=== PATIENT | female | born 1965 | race Caucasian/White ===

== ENCOUNTER 2019-03-15 15:20 | Inpatient (IN) | payer MEDICARE, SELFPAY ==
[~2019-03-15 15:20] MED LIST: ISOVUE-370 76%-LOCM 1 ML ONE
[2019-03-15] MEDS ORDERED: Naloxone HCl 0.4 mg/ml Vial ONE (15:25)
[2019-03-15] MEDS ORDERED: Naloxone HCl 2 mg/2 ml Syringe ONE (15:25)
--- NOTE | 2019-03-15 15:50 | RAD ---
XR Chest 1 View Portable HISTORY: Dyspnea, unresponsive. COMPARISON: None. FINDINGS: Heart size is enlarged. Endotracheal and NG tubes are in satisfactory position. There is el evation the right hemidiaphragm. Increased parahilar lung markings are present asymmetrically involving the right hilar region. This could be on the basis of pulmonary edema, a right parahilar in filtrate is not excluded. IMPRESSION: Findings as noted above.
[2019-03-15 15:52] LABS: Actual Bicarbonate (HCO3a) 22.1 mEq/L (22-28); Analyzer IN Cardio ER; CO2 Tension 49.5 mmHg (35.0-45.0); Calcium, Ionized 1.11 mmol/L (1.12-1.30); Carboxyhemoglobin (COHb) 2.2 gm% (0.0-3.0); Hemoglobin (Hb) 12.1 g/dL (12.0-16.0); O2 Tension (PaO2) 64.3 mmHg (80.0-100.0); Potassium - ABG Lab 3.19 mmol/L (3.70-5.30); pH, Arterial 7.27 (7.35-7.45)
[2019-03-15] MEDS ORDERED: Acetaminophen 650 MG Suppository ONE (15:52)
[2019-03-15] MEDS ORDERED: Pantoprazole 40 MG VIAL ONE (15:52)
[2019-03-15] MEDS ORDERED: Piperacillin/Tazobactam 3.375 GM VIAL ONE (15:52)
[2019-03-15] MEDS ORDERED: Tranexamic Acid 1,000 MG/10 ML VIAL ONE (15:52)
[2019-03-15 15:56] LABS: Puncture Site RBRACH
[2019-03-15 15:57] LABS: ALV-art Gradient 586.825 (0-20); Peep/CPAP 7.5 cmH2O
[2019-03-15 15:57] LABS: Bilirubin Negative (Negative); Blood, Urine Moderate (Negative); Clarity CLEAR (Clear); Glucose, Urine (Dipstick) Negative (Negative); Leukocyte Negative (Negative); Nitrite Negative (Negative); Protein, Urine (Dipstick) 100 mg/dL (Neg-Trace); Specific Gravity, Urine 1.017 (1.002-1.036); Urobilinogen 0.2 mg/dL (0.2-1.0); pH, Urine 5.5 (5.0-9.0)
[2019-03-15 15:59] LABS: Bacteria/HPF None Seen HPF (None Seen); Hyaline Casts/LPF 7-10 HYALINE CAST LPF (0-3 Hyaline); Pathc Cast-AUWi Flag 2.31 (0-2.49); RBC/HPF 0-3 HPF (0-3); Squamous Epithelial None Seen HPF (0-3); WBC/HPF None Seen HPF (0-3)
[2019-03-15 16:07] LABS: Amphetamine Not Detected (NotDetected); Barbiturates Screen Not Detected (NotDetected); Benzodiazepine Screen Detected (NotDetected); Cocaine Metabolite Screen Not Detected (NotDetected); Medtox Control Line Valid? VALID (VALID); Medtox Reader # READER 1; Methadone Not Detected (NotDetected); Methamphetamine Not Detected (NotDetected); Opiate Screen Detected (NotDetected); Oxycodone Screen Not Detected (NotDetected); Phencyclidine (PCP) Not Detected (NotDetected); THC/Cannabinoid Screen Not Detected (NotDetected); Tricyclic Screen Not Detected (NotDetected)
[2019-03-15] MEDS ORDERED: fentaNYL Citrate/PF 2,000 MCG in Sodium Chloride 0.9% 60 ML IV SCH ×2 (16:14→18:13)
[2019-03-15] MEDS ORDERED: Pantoprazole 80 MG in Sodium Chloride 0.9% 100 ML IVP SCH (16:15)
[2019-03-15] MEDS ORDERED: Propofol 1,000 MG/100 ML VIAL IV ONE (16:25)
[2019-03-15 16:30] LABS: #Basophils 0.1 thou/uL (0.0-0.2); #Lymphocytes 1.5 thou/uL (1.20-3.40); #Monocytes 0.7 thou/uL (0.11-0.59); #Neutrophils 8.9 thou/uL (1.40-6.50); %Basophils 0.5 % (0.0-1.0); %Eosinophils 0.2 % (0.0-10.0); %Lymphocytes 13.1 % (21.0-51.0); %Monocytes 6.5 % (0.0-10.0); %Neutrophils 79.7 % (42.0-75.0); Hemoglobin 10.6 g/dL (12.0-16.0); Mean Corpuscular HGB CONC 31.7 g/dL (32.0-36.0); Mean Corpuscular Volume 94.6 fL (78.0-98.0); Mean Platelet Volume 7.2 fL (7.4-10.4); Platelet Count 217 thou/uL (130-400); RBC Distribution Width 12.5 % (11.5-14.5); Red Blood Cell (RBC) Count 3.54 mill/uL (4.20-5.40); White Blood Cell (WBC) Count 11.2 thou/uL (4.8-10.8)
[2019-03-15] MEDS ORDERED: Tranexamic Acid 1,000 MG in Sodium Chloride 0.9% 250 ML 250 ML IVPB SCH (16:30)
[2019-03-15] MEDS ORDERED: Vancomycin HCl 1.75 GM in Sodium Chloride 0.9% 500 ML IVPB SCH (16:30)
[2019-03-15 16:46] LABS: Lactic Acid 1.3 mmol/L (0.5-2.2)
[2019-03-15 16:50] LABS: Acetaminophen Less than 6.0 mcg/mL (10.0-30.0); Alcohol Less than 10 mg/dL (Less than 10); Salicylate Less than 8.0 mg/dL (15.0-30.0)
[2019-03-15 16:52] LABS: ALT (SGPT) 115 U/L (8-55); AST (SGOT) 214 U/L (5-34); Albumin 2.9 g/dL (3.5-5.0); Alkaline Phosphatase 67 U/L (40-150); Anion Gap 13 mmol/L (10-20); BUN (Urea Nitrogen) 46 mg/dL (9.8-20.1); Bilirubin, Total 0.3 mg/dL (0.2-1.2); Calc. Creatinine Clearance 37 mL/min (70-130); Calcium 7.2 mg/dL (7.8-10.44); Carbon Dioxide 21 mmol/L (22-29); Chloride 110 mmol/L (98-107); Estimated GFR-MDRD 22; Globulin 1.8 g/dL (2.4-3.5); Glucose 110 mg/dL (70-105); Potassium 3.3 mmol/L (3.5-5.1); Protein, Total 4.7 g/dL (6.0-8.3); Sodium 141 mmol/L (136-145)
--- NOTE | 2019-03-15 17:01 | CT ---
CT head noncontrast HISTORY: Altered mental status. FINDINGS: No comparison. There is no evidence of acute intracranial hemorrhage or infarct. Small ill- defined areas of decreased density within the basal ganglia have the appearance of old lacunar infarcts. Scattered mild chronic ischemic small vessel disease throughout the periventricular white m atter. There is no mass effect or shift of midline structures. Mild mucosal thickening within the ethmoid air cells. IMPRESSION: Mild chronic ischemic changes are apparent. No acute intracranial abnormalities are demon strated.
--- NOTE | 2019-03-15 17:09 | CT ---
CT chest with IV contrast CT abdomen and pelvis with IV contrast CT thoracic spine noncontrast CT lumbar spine noncontrast HISTORY: Fall. Chest injury. Back injury. Abdomen injury. FINDINGS: Intraosseous catheter at the right humeral head. Endotracheal catheter and nasogastric tube are in good CT position. Extensive collapse of the right lower lobe and left upper lobe sparing the anterior segment. Right mi ddle lobe remains aerated. Moderate atelectasis at the left posterior lung base. Abrupt cut off of the airway is not evident. Old bilateral rib fractures. Gallbladder surgically absent. Mild nonspecific periportal edema. No enl arged lymph nodes or free fluid. Urinary bladder decompressed by a Johnson catheter. Degenerative changes throughout the lumbar spine. Vertebral body heights and alignment are maintained . Absence of the posterior elements at the T11 level, likely postoperative. IMPRESSION: No acute traumatic injury is demonstrated. Significant atelectasis of each lung, right greater than left. Predominantly dependent portions of th e lungs. Cause is not evident. Mild diffuse periportal edema of the liver. Cause is not evident.
[2019-03-15 17:22] LABS: CKMB 101.3 ng/mL (0-6.6)
[2019-03-15 17:55] LABS: Analyzer IN Cardio ER; Base Excess (BEa) -6.7 mEq/L (-2.0 to +3.0); CO2 Tension 38.6 mmHg (35.0-45.0); Calcium, Ionized 1.05 mmol/L (1.12-1.30); Carboxyhemoglobin (COHb) 0.3 gm% (0.0-3.0); Hemoglobin (Hb) 12.3 g/dL (12.0-16.0); O2 Tension (PaO2) 87.1 mmHg (80.0-100.0); Potassium - ABG Lab 3.64 mmol/L (3.70-5.30); pH, Arterial 7.31 (7.35-7.45)
[2019-03-15 17:57] LABS: Puncture Site RBRACH
[2019-03-15] MEDS ORDERED: Ventilator Sedation Protocol 1 EACH FS SCH (18:02)
--- NOTE | 2019-03-15 18:05 | PDOC.FPRHP ---
- History of Present Illness Chief Complaint: found unresponsive History of Present Illness: This is a 54 yo F who presented to the ER by EMS after being found unresponsive by family members. Per EMS, the family reports that she was not feeling well this morning and laid down for a nap. They are unsure how long she had been sleeping. Per air EMS, ground EMS reported GCS 5 and hypotensive on scene. Ground EMS intubated the patient. [facility] reports a blood glucose of 142 en route. An NG tube was placed with dark return. Per fiance, the patient started feeling bad around 10pm yesterday. She was complaining of a cough and stomach pain. She went to bed shortly after. He states that she typically sleeps in till 11am, but had not woken up by 1pm which is when he checked on her and was unable to wake her. He noted some black material around her mouth at that time. Unable to obtain further hx due to patient mental status. She is currently intubated and on sedation. ED Course: propofol 5mcg/kg/min, fentanyl 1mcg/kg/hr, tranexamic acid 2g, naloxone 1mg IV, protonix, NaCl 30mL/kg, tylenol 650mg, vanc, zosyn - Allergies/Adverse Reactions Allergies Allergy/AdvReac Type Severity Reaction Status Date / Time codeine Allergy Verified 03/15/19 20:58 ketorolac [From Toradol] Allergy Verified 03/15/19 20:58 metoclopramide [From Reglan] Allergy Verified 03/15/19 20:58 prochlorperazine Allergy Verified 03/15/19 20:58 [From Compazine] tramadol Allergy Verified 03/15/19 20:58 - History *Per fiance at the bedside PMHx: HLD, HTN PSHx: spinal tumor removed FHx: unknown Social: denies alcohol, drug use; tobacco - 4cigs/day x unknown amount of year - Review of Systems ROS unobtainable: due to endotracheal tube - Vital signs BP: 114/78 HR: 113 RR: 14 Tmax: 101.6 Pox: 96% on ventilator Wt: 85.4kg - Physical Exam -Constitutional: intubated, on ventilator, GCS 6 HEENT: normocephalic and atraumatic -HEENT: Pupils, fixed, constricted Neck: supple -Heart: tachycardic, no murmurs, rubs or gallops Lungs: no wheezing, no retractions -Lungs: On ventilator, CTAB w/ ventilator sounds Abdomen: soft, no masses/distention Musculoskeletal: normal structure -Neurological: unable to assess Skin: no rash/lesions, good turgor, capillary refill <2 seconds Heme/Lymphatic: no unusual bruising or bleeding, no purpura, no petechia FMR H&P: Results - Labs Result Diagrams: 03/15/19 21:09 03/15/19 16:16 Lab results: WBC 11.2 thou/uL (4.8-10.8) H 03/15/19 16:16 Hgb 10.6 g/dL (12.0-16.0) L 03/15/19 16:16 Hct 33.5 % (36.0-47.0) L 03/15/19 16:16 MCV 94.6 fL (78.0-98.0) 03/15/19 16:16 Plt Count 217 thou/uL (130-400) 03/15/19 16:16 Neutrophils % 79.7 % (42.0-75.0) H 03/15/19 16:16 ABG pH 7.31 (7.35-7.45) L 03/15/19 17:53 ABG pCO2 38.6 mmHg (35.0-45.0) 03/15/19 17:53 ABG pO2 87.1 mmHg (80.0-100.0) 03/15/19 17:53 Sodium 141 mmol/L (136-145) 03/15/19 16:16 Potassium 3.3 mmol/L (3.5-5.1) L 03/15/19 16:16 Chloride 110 mmol/L (98-107) H 03/15/19 16:16 Carbon Dioxide 21 mmol/L (22-29) L 03/15/19 16:16 BUN 46 mg/dL (9.8-20.1) H 03/15/19 16:16 Creatinine 2.32 mg/dL (0.6-1.1) H 03/15/19 16:16 Glucose 110 mg/dL (70-105) H 03/15/19 16:16 Lactic Acid 1.3 mmol/L (0.5-2.2) 03/15/19 16:16 Calcium 7.2 mg/dL (7.8-10.44) L 03/15/19 16:16 Total Bilirubin 0.3 mg/dL (0.2-1.2) 03/15/19 16:16 AST 214 U/L (5-34) H 03/15/19 16:16 ALT 115 U/L (8-55) H 03/15/19 16:16 Alkaline Phosphatase 67 U/L (40-150) 03/15/19 16:16 CK-MB (CK-2) 101.3 ng/mL (0-6.6) H* 03/15/19 16:16 Serum Total Protein 4.7 g/dL (6.0-8.3) L 03/15/19 16:16 Albumin 2.9 g/dL (3.5-5.0) L 03/15/19 16:16 Urine Ketones Negative mg/dL (Negative) 03/15/19 15:33 Urine Blood Moderate (Negative) H 03/15/19 15:33 Urine Nitrite Negative (Negative) 03/15/19 15:33 Ur Leukocyte Esterase Negative (Negative) 03/15/19 15:33 Urine RBC 0-3 HPF (0-3) 03/15/19 15:33 Urine WBC None Seen HPF (0-3) 03/15/19 15:33 Ur Squamous Epith Cells None Seen HPF (0-3) 03/15/19 15:33 Urine Bacteria None Seen HPF (None Seen) 03/15/19 15:33 - Radiology Interpretation CT scan - abdomen Status: report reviewed by me (significant atelectasis of each lung, R>L, mild diffuse periportal edema of liver) Chest x-ray Status: report reviewed by me (increased parahilar lung markings - possible pulm edema more on right) CT scan - head Status: report reviewed by me (mild chronic ischemic changes) FMR H&P: A/P - Problem List (1) Encephalopathy acute Current Visit: Yes Status: Acute Code(s): G93.40 - ENCEPHALOPATHY, UNSPECIFIED (2) GI bleed Current Visit: Yes Status: Acute Code(s): K92.2 - GASTROINTESTINAL HEMORRHAGE, UNSPECIFIED (3) Transaminitis Current Visit: Yes Status: Acute Code(s): R74.0 - NONSPEC ELEV OF LEVELS OF TRANSAMNS & LACTIC ACID DEHYDRGNSE (4) LUCÍA (acute kidney injury) Current Visit: Yes Status: Acute Code(s): N17.9 - ACUTE KIDNEY FAILURE, UNSPECIFIED (5) NSTEMI (non-ST elevated myocardial infarction) Current Visit: Yes Status: Acute Code(s): I21.4 - NON-ST ELEVATION (NSTEMI) MYOCARDIAL INFARCTION (6) Respiratory acidosis Current Visit: Yes Status: Acute Code(s): E87.2 - ACIDOSIS (7) Metabolic acidemia Current Visit: Yes Status: Acute Code(s): E87.2 - ACIDOSIS - Plan STATE EPIDEMIOLOGIST - Sedation: on 15mcg propofol - GCS: E - 1, V - 1t, M - 4 = 6 - Metabolic encephalopathy, POA - 2/2 GI bleed presumably - ammonia pending Resp - ABG: pH 7.31, Co2 38.6, O2 87.1, Bicarb 19, base excess -6.7 - appears metabolic acidosis but has been on ventilation; initial ABG resp acidosis with pH 7.27, Co2 49.5, O2 64.3, base excess 05, bicarb 22.1 - Pulm consulted - Vent settings: SimV PC 18 for 1.05s w/ cut off at 25% Insp Flow rate, PEEP 10 , Insp Support Pressure 10 - Pt w/ tobacco abuse and likely has COPD CV - Pressors: none - NSTEMI: Trop 1.59, will trend; likely 2/2 demand due to hypoxia due to underlying medical condition GI - NG tube placed: Return of black material - FOBT pending on gastric contents - Transaminitis: AST/ALT: 214/115 - RUQ US pending; Hep panel, RPR, HIV labs pending - Suspect GI bleed possibly 2/2 NSAID use: consider GI consult in the AM Heme - Hgb 10.6, will repeat H/H at 2200, repeat CBC in AM /Renal - I/O: roth in place - LUCÍA: BUN/Cr: 46/2.32, renally dosing meds, IVFs Infection - WBC 11.2, Neutrophils 79.7%, no bands - procal 0.17, will leave patient on abx for now and trend; LA 1.3 - On vanc and zosyn Lines/Tubes: right femoral Central line, right shoulder IO, left IJ, roth Consults: Alexander - Colin Code status: FULL - Daughter in [place]: Dariela [phone] - Discussed code status w/ daughter; hilton Norman [phone] PPx: SCDs, possible GI bleed Dispo: pending clinical course Case discussed with Dr. Abdul FMR H&P: Upper Level - Pertinent history 54 yo WF PMH HTN, HLD, tobacco abuse with likely COPD, and chronic back pain 2/ 2 DJD and spine tumor which was resected last year. Presents with AMS that started this afternoon. history obtained from patient hilton as patient intubated and sedated. States patient was not feeling well last night around 2200. Had cough and stomach pain when she went to bed. Hilton states she normally wakes up around 1300 and found her unresponsive when he went to check on her this morning at around 1100. Called EMS and was intubated at the scene. ER: Labs, EKG, CXR, CT brain, CT chest/abd/pelvis, Vanc, Zosyn, Right femoral line, NS 30 mL/kg, protonix bolus + gtt, Bronchoscopy by Dr. Shaw yielding black aspirate per report. - Pertinent findings Vitals: Pulse 105. Temp 100.5 F with Tmax 101F. See recruitment internship note for vent settings. GEN: Intubated, sedated CV: Tachy, regular, no murmur Pulm: CTA-B, ventilator sounds. Abd: NG tube in place yielding black fluid., Neuro: withdraws to pain, GCS [id number] Labs: Trop 1.519, CKMB 103, H&H 10.6/33.5, Cr 2.32, K 3.3 ABG #1 7.27/49.5/64.3/22.1 ABG #2 7.31/38.6/87.1/ 19.0 EKG: Sinus tachy, few t-wave inversions CXR: right hemidiaphram elevation CT brain: Chronic ischemic changes CT Chest/Abd/Pelvis: atelectesis, portal edema. - Plan Date/Time: 03/15/19 1803 I, Lucius Frankel MD, have evaluated this patient and agree with findings/plan as outlined by recruitment internship resident. Pertinent changes/additions are listed here. 1. Presumed acute upper GI bleed: continue protonix and NG suctioning. GI contacted tonight and requesting formal consult tomorrow morning but will see overnight if becomes acutely unstable, currently hemodynamically stable. Continue supportive measures, Trend H&H. May need urgent endoscopy if decompensates. I suspect this may be due to NSAID use given her hx of back pain. Hilton denies ETOH use. Occult blood on gastric contents pending. Trend H& H 2. Acute hypoxic, hypercapnic, acidemic respiratory failure 2/2 aspiration pneumonitis: appears to be improving with vent support. Dr. Shaw aware and will see in the morning. Broad spectrum abx. Cultures pending. check procalcitonin. 3. LUCÍA: baseline Cr unknown, continue IV fluids, likely 2/2 #1 and #2, 4. Demand ischemia: trend trops, no ASA or anticoagulation due to #1. 5. Acute metabolic encephalophathy: likely related to sedation but is at risk for anoxic brain injury. monitor neuro status as sedation is titrated down. Consider MRI if no improvement or focal deficits are identified. check ammonia level. 6. Transaminitis 2/2 shock liver: trend, check hepatitis panel, HIV, RPR, normal APAP level. PPx: protonix Diet: NPO CODE: FULL Dispo: Inpatient, ICU, >[address] Abdul Addendum - Attending - Attending Attestation Date/Time: 03/15/19 5696 I personally evaluated the patient and discussed the management with Dr. Felton and Marlys. I agree with and repeated the History, Examination, Assessment and Plan documented above with any addition or exceptions noted below. 45 minutes of critical care time spent with patient, reviewing chart, coordinating care.
[2019-03-15] MEDS ORDERED: Fentanyl BOLUS 250 ML IVPB PRN (18:13)
[2019-03-15] MEDS ORDERED: DISCONTINUE PREVIOUS NARCOTIC PAIN MEDICATIONS AND BENZODIAZEPINES FS SCH (18:13)
[2019-03-15] MEDS ORDERED: Propofol BOLUS 1,000 MG/100 ML VIAL IV PRN (18:13)
[2019-03-15] MEDS ORDERED: Propofol 1,000 MG/100 ML VIAL IV PRN (18:13)
[2019-03-15] MEDS ORDERED: Lorazepam 2 MG/ML VIAL SLOW IVP PRN (18:13)
[2019-03-15] MEDS ORDERED: Morphine 2 MG/ML SYRINGE SLOW IVP PRN (18:13)
[2019-03-15] MEDS ORDERED: Sodium Chloride 0.9% 1,000 ML IV SCH (18:15)
[2019-03-15] MEDS ORDERED: Ondansetron PF 4 MG/2 ML Vial IVP PRN (19:07)
[2019-03-15] MEDS ORDERED: Acetaminophen 650 MG Suppository PR PRN (19:07)
[2019-03-15] MEDS ORDERED: Ondansetron ODT 4 MG TAB PO PRN (19:07)
--- NOTE | 2019-03-15 21:05 | ULT ---
US Gallbladder RUQ History: [Elevated LFTs] Comparison: CT examination same day Findings: Real-time grayscale and color evaluation of the right upper quadrant of the abdomen was per formed. Visualized portion of the pancreas and IVC are unremarkable. Portal vein is patent with antegrade flow. Common bile duct measures 5 mm, normal. Trace perihepatic fluid. Liver measures 18.9 cm in length. Right kidney measures 11.8 x 5.4 x 4.8 cm without mass, hydronephrosis, or abnormal calcifications. G allbladder is been surgically removed. Impression: Hepatomegaly otherwise unremarkable exam.
[2019-03-15 21:20] LABS: Hemoglobin 11.5 g/dL (12.0-16.0); Platelet Count 179 thou/uL (130-400)
[2019-03-15 21:51] LABS: Troponin I 2.035 ng/mL (< 0.028)
[2019-03-15] MEDS: Piperacillin/Tazobactam 2.25 GM in Sodium Chloride 0.9% 100 ML IVPB SCH (21:54)
[2019-03-15 21:59] LABS: Syphilis Antibody Nonreactive (Nonreactive); Syphilis Antibody Index 0.03 S/CO (<1.00 Non-Reactive)
[2019-03-15 22:39] LABS: HBSAB Concentration 2.55 mIU/mL; HBSAg Index 0.29 S/CO (0-0.99); HIV (1/2) Antibody/Antigen Non-Reactive (NonReactive); Hep B Surf AB Non-Reactive (NonReactive); Hep B Surf Ag Non-Reactive S/CO (NonReactive); Hep C IgG Ab Non-Reactive (NonReactive); Hep C Index 0.05 S/CO (0-0.79)
--- NOTE | 2019-03-16 00:39 | OP ---
DATE OF PROCEDURE: 03/15/2019 PROCEDURE PERFORMED: Fiberoptic bronchoscopy. PREOPERATIVE DIAGNOSIS: Aspiration pneumonia, possibility of retained secretions. POSTOPERATIVE DIAGNOSIS: Aspiration pneumonitis. ANESTHESIA: None. DESCRIPTION OF PROCEDURE: Procedure was done on an emergency basis as the patient was failing to oxygenate despite being on mechanical ventilation with FiO2 of 100%. It was obvious through initial exam that her endotracheal tube was coated with black substance that appeared to be coming from her stomach. An Ambu bronchoscope size 2.2 was inserted through an adapter through the patient's 7.0 endotracheal tube while she was on mechanical ventilation. The endotracheal tube was coated with black vomitus substance which was lavaged with saline and aspirated. There were copious black colored secretions present in the right middle lobe, right lower lobe, right upper lobe, left upper lobe, and left lower lobe. These were lavaged and removed until completion. The patient tolerated the procedure well with resultant improvement in her O2 saturations from 78% to 95%. Job ID: [id number]
[2019-03-16 00:58] LABS: Critical Call Chem Troponin I RESULT DECREASING; Troponin I 2.021 ng/mL (< 0.028)
--- NOTE | 2019-03-16 00:59 | CON ---
DATE OF CONSULTATION: 03/15/2019 CONSULTING PHYSICIAN: [facility]. REASON FOR CONSULTATION: CCU care. HISTORY OF PRESENT ILLNESS: This is a 54-year-old female, who was brought in unresponsive by EMS. Her fiance says that he found her in her room this morning. She would not wake up. She had gone to bed last night feeling ill. Apparently, she was found in some vomitus. She was intubated en route with 7.0 endotracheal tube. She has been on mechanical ventilation. PAST MEDICAL HISTORY: 1. Hypertension. 2. Stroke. 3. Hyperlipidemia. 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 PSYCHIATRIC HISTORY: Negative. SOCIAL HISTORY: She is disabled. Does not use alcohol. Apparently smokes about half pack per day. Does not use anything besides her prescribed medication. ALLERGIES: NONE. FAMILY MEDICAL HISTORY: Not known. REVIEW OF SYSTEMS: Cannot be obtained as the patient is intubated on mechanical ventilation. PHYSICAL EXAMINATION: VITAL SIGNS: Temperature was 100.0, pulse 105, blood pressure 114/78, O2 saturation 97%. End tidal CO2 27. This patient is currently intubated on mechanical ventilation. HEENT: Pupils both reactive, sclerae anicteric. Oropharynx clear. NECK: No JVD. No bruits. LUNGS: Coarse rhonchi bilaterally. CARDIOVASCULAR: S1 and S2, tachycardic without audible murmur. ABDOMEN: Soft and nontender. No hepatosplenomegaly. EXTREMITIES: No clubbing, cyanosis, or edema. NEUROLOGIC: She appears to be chemically paralyzed after the intubation. LABORATORY DATA: White blood cell count 11.2, hematocrit 33.5, and platelet count 217. Sodium 141, potassium 3.3, chloride 110, CO2 of 21, BUN 46, creatinine 2.3, glucose 110, troponin 1.5, albumin is 2.9. Urinalysis showed some blood in the urine. Tox screen is positive for benzodiazepines and opiates. ABG; initially pH was 7.27, pCO2 of 49, PO2 of 64, on SIMV rate 16, tidal volume 500, PEEP 7.5, pressure support 10, FiO2 100%. I then placed her on pressure control ventilation. Repeated ABG; pH was 7.31, pCO2 of 38, pO2 of 87. IMAGING: Head CT was negative. The chest/abdominal pelvis CT demonstrates bilateral infiltrative changes in the right lung greater than the left. ASSESSMENT: 1. Aspiration pneumonitis. The patient appears to have vomited and aspirated. 2. Acute hypoxic respiratory failure, requiring mechanical ventilation. 3. Anemia with coffee-ground emesis - rule out gastrointestinal bleed. 4. Renal insufficiency. 5. Mildly elevated troponin. 6. Protein-calorie malnutrition based on low albumin. 7. Positive tox screen for opiates and benzodiazepines of unknown significance. PLAN: 1. I have placed the patient on pressure control ventilation. 2. She has been given Zosyn and vancomycin in the emergency room. I would continue both the antibiotics. 3. Bronchoalveolar lavage has been performed. Specimen has been sent for culture. 4. Empiric steroids. 5. GI prophylaxis with Protonix. 6. IV fluids. 7. Replace electrolytes as needed. The above encompassed 45 minutes of critical care time, not including time spent performing bronchoscopy. Job ID: [id number]
[2019-03-16] MEDS: methylPREDNISolone Sod Succ 40 MG VIAL IVP SCH ×3 (01:18→17:28)
[2019-03-16] MEDS: Sodium Chloride 0.9% 1,000 ML IV SCH ×4 (01:19→20:30)
[2019-03-16] MEDS: Piperacillin/Tazobactam 2.25 GM in Sodium Chloride 0.9% 100 ML IVPB SCH ×4 (04:51→21:52)
--- NOTE | 2019-03-16 05:02 | RAD ---
XR Chest 1 View Portable HISTORY: Follow-up of pneumonia COMPARISON: Prior day study. FINDINGS: Endotracheal and NG tubes are in satisfactory position. Parenchymal infiltrates show some s lightly more prominent changes in the left upper lobe. Otherwise stable chest. IMPRESSION: Slightly more prominent left upper lobe infiltrative change.
[2019-03-16 05:20] LABS: ALT (SGPT) 239 U/L (8-55); AST (SGOT) 449 U/L (5-34); Albumin 2.8 g/dL (3.5-5.0); Alkaline Phosphatase 63 U/L (40-150); Anion Gap 14 mmol/L (10-20); BUN (Urea Nitrogen) 52 mg/dL (9.8-20.1); Bilirubin, Total 0.5 mg/dL (0.2-1.2); Calc. Creatinine Clearance 37 mL/min (70-130); Carbon Dioxide 19 mmol/L (22-29); Chloride 112 mmol/L (98-107); Estimated GFR-MDRD 23; Globulin 2.2 g/dL (2.4-3.5); Glucose 140 mg/dL (70-105); Sodium 142 mmol/L (136-145)
[2019-03-16 05:56] LABS: Band 21 % (5-11); Hemoglobin 10.2 g/dL (12.0-16.0); Hypochromia SLIGHT = 6-15 cells (100X) (0-5/hpf); Lymphocytes 5 % (21-51); MDiff Complete? YES; Mean Corpuscular HGB CONC 31.6 g/dL (32.0-36.0); Mean Corpuscular Volume 91.7 fL (78.0-98.0); Monocytes 5 % (0-10); Neutrophil 69 % (42-75); Nucleated RBC 1 % (0); Platelet Count 188 thou/uL (130-400); Platelet Morphology Comment Appears Adequate; RBC Distribution Width 12.6 % (11.5-14.5); Red Blood Cell (RBC) Count 3.53 mill/uL (4.20-5.40); White Blood Cell (WBC) Count 13.3 thou/uL (4.8-10.8)
[2019-03-16] MEDS ORDERED: Potassium Chloride 40 MEQ in Premix Bag 1 BAG IVPB SCH (07:00)
--- NOTE | 2019-03-16 07:03 | PDOC.FM ---
- Subjective Subjective: 54 yo f admitted for acute hypoxic respiratory failure 2/2 aspiration pneumonitis/pna, acute blood loss anemia 2/2 suspected upper GI bleed, and sepsis 2/2 pneumonitis/pneumonia. Intubated this morning but arousable. GCS 11 - Objective Vital Signs & Weight: Vital Signs (12 hours) Temp Pulse Resp BP Pulse Ox 03/16/19 06:44 85 117/80 03/16/19 06:42 85 20 99 03/16/19 02:24 95 20 100 03/15/19 22:31 97 20 100 03/15/19 20:00 101.4 F H 100 03/15/19 19:51 103 H 20 96 Weight Weight 81.9 kg Most Recent Monitor Data Heart Rate from ECG 87 NIBP 112/70 NIBP BP-Mean 84 Respiration from ECG 20 SpO2 100 I&O: 03/15/19 03/16/19 03/17/19 06:59 06:59 06:59 Intake Total 1610.3 Output Total 2470 Balance -859.7 Result Diagrams: 03/17/19 06:43 03/17/19 04:00 Phys Exam - Physical Examination Constitutional: NAD HEENT: PERRLA, moist MMs Respiratory: no rales, clear to auscultation bilateral currenlty on the ventilator, cpap settings (on pressure control prior) Cardiovascular: RRR, no significant murmur Gastrointestinal: soft, non-tender, no distention Musculoskeletal: no edema, pulses present Dx/Plan (1) Acute respiratory failure with hypoxia and hypercapnia Code(s): J96.01 - ACUTE RESPIRATORY FAILURE WITH HYPOXIA; J96.02 - ACUTE RESPIRATORY FAILURE WITH HYPERCAPNIA Status: Acute (2) Sepsis Code(s): A41.9 - SEPSIS, UNSPECIFIED ORGANISM Status: Acute (3) Acute blood loss anemia Code(s): D62 - ACUTE POSTHEMORRHAGIC ANEMIA Status: Acute (4) Encephalopathy acute Code(s): G93.40 - ENCEPHALOPATHY, UNSPECIFIED Status: Acute (5) Upper GI bleeding Code(s): K92.2 - GASTROINTESTINAL HEMORRHAGE, UNSPECIFIED Status: Suspected (6) Elevated troponin Code(s): R74.8 - ABNORMAL LEVELS OF OTHER SERUM ENZYMES Status: Acute (7) Hypokalemia Code(s): E87.6 - HYPOKALEMIA Status: Acute (8) LUCÍA (acute kidney injury) Code(s): N17.9 - ACUTE KIDNEY FAILURE, UNSPECIFIED Status: Acute (9) Transaminitis Code(s): R74.0 - NONSPEC ELEV OF LEVELS OF TRANSAMNS & LACTIC ACID DEHYDRGNSE Status: Acute (10) Opiate use Code(s): F11.90 - OPIOID USE, UNSPECIFIED, UNCOMPLICATED Status: Acute (11) History of benzodiazepine use Code(s): Z87.898 - PERSONAL HISTORY OF OTHER SPECIFIED CONDITIONS Status: Acute - Plan Plan: 54 yo f admitted for acute hypoxic hypercapnic respiratory failure 2/2 aspiration pneumonitis and acute blood loss anemia 2/2 suspected upper GI bleed , possible GI ulcer, sepsis 2/2 aspiration pneumonitis/pneumonia, and acute metabolic vs toxic encephalopathy d/t ?opiate and benzodiazepine misuse/abuse. 1. Acute hypoxic, hypercapnic, respiratory failure 2/2 aspiration pneumonitis/ pneumonia: Bronchoscopy performed at bedside in the ER d/t poor oxygen despite FiO2 of 100% on the ventilator, and removed black gastric contents that had been aspirated. Pt's oxygenation improved after that and was placed on pressure control SIMV overnight. This morning pt underwent a trial of CPAP on the ventilator and is doing well. Saturating well. Will remain intubated until EGD completed by Dr. Andrews. See below. Pt currently on broad spectrum abx (vanc and zosyn), with new cxr this am found to have an increasing JESS infiltrate. Blood and urine cx pending. 2. Acute blood loss anemia 2/2 suspected upper GI bleed- Occult blood on gastric contents positive. Continue protonix IV and NG suctioning. GI consulted this am. Dr. Andrews to see the pt. Suspect EGD later today or tomorrow. Pt's H/ H stable. Will continue to trend/monitor and transfuse as appropriate. Continue supportive measures. This may be due to NSAID use given her hx of back pain. No known hx of cirrhosis, heptatitis panel negative, and theodoreance denies ETOH use. RUQ US unremarkable. Ammonia wnl. 3. Sepsis-2/2 aspiration pneumonitis/pneumonia. Continue vanc and zosyn at this time. CXR with worsening JESS infiltrate this am. Pt febrile and tachycardic overnight. Volume rescusitated in the ER and on NS @ 150ml/hr. Will continue to monitor. WBC 13.2 this am, pt received steroids however. 4. Aspiration pneumonitis/pneumonia-see #3 4. LUCÍA: baseline Cr unknown, continue IV fluids, will add a urine sodium and urine osm. No muddy brown casts seen on urine microscopy. 5. Demand ischemia: trend trops, no ASA or anticoagulation due to #2 6. Acute metabolic/toxic encephalophathy: likely related to suspected combined longstanding use of opiates and benzo combination. Monitor neuro status as sedation is titrated down. Consider MRI if no improvement or focal deficits are identified. Ammonia wnl 7. Rhabdomyolysis-CK ~76133, will trend; Continue NS @ 150 ml/hr 8. Transaminitis: likely 2/2 ischemia, will continue to trend, hepatitis panel negative. Ammonia negative. Ruq us wnl. No known dx of cirrhosis. Fiance denies alcohol use in pt. 9. Hypokalemia-replaced. Will recheck this afternoon and replace as indicated. 10 Benzodiazepine use-concern for abuse and dependence, will add ASE protocol 11. Opiate use-concern for abuse and dependence PPx: protonix Diet: NPO CODE: FULL Dispo: Inpatient, ICU, >[address] Espinosa Addendum - Attending - Attending Attestation Date/Time: 03/17/19 1331 I personally evaluated the patient and discussed the management with Dr. Brady. I agree with the History, Examination, Assessment and Plan documented above with any addition or exceptions noted below.
[2019-03-16 07:07] LABS: Actual Bicarbonate (HCO3a) 15.5 mEq/L (22-28); Base Excess (BEa) -5.7 mEq/L (-2.0 to +3.0); Calcium, Ionized 1.03 mmol/L (1.12-1.30); Carboxyhemoglobin (COHb) 0.7 gm% (0.0-3.0); Hemoglobin (Hb) 9.4 g/dL (12.0-16.0); Potassium - ABG Lab 2.97 mmol/L (3.70-5.30); pH, Arterial 7.53 (7.35-7.45)
[2019-03-16 07:34] LABS: ALV-art Gradient 262.925 (0-20); CO2 Tension 19.1 mmHg (35.0-45.0); Puncture Site LRA
[2019-03-16] MEDS ORDERED: Bacteriostatic Water 30 ML VIAL FS PRN (07:56)
--- NOTE | 2019-03-16 07:59 | PRG ---
DATE OF SERVICE: 03/16/2019 TIME SPENT: This is a 45 minutes of critical care time. SUBJECTIVE: This patient remains intubated on mechanical ventilation. She will wake up, move all 4 extremities. OBJECTIVE: VITAL SIGNS: Pulse is 103, blood pressure 131/83, O2 sat 99%, and respiratory rate 13, and temperature is 100.8. A 24-hour intake has been 1610 plus what was given in the ER, output 2470, only 1270 from urine and 1200s from OG tube drainage. HEENT: Opens her eyes, looks around. Oropharynx, ET tube in place. OG tube in place. NECK: No JVD. LUNGS: Coarse breath sounds, but improved since yesterday. CARDIOVASCULAR: S1 and S2, tachycardic. ABDOMEN: Soft and nontender. EXTREMITIES: No clubbing, cyanosis, or edema. LABORATORY DATA: Sodium 142, potassium 3.0, chloride 112, CO2 of 19, BUN 52, creatinine 2.2, and glucose 140. CPKs 18,441. AST 449, ALT 239, albumin 2.8. White blood cell count 13.3, hematocrit 32.4, and platelet count 188. ABG; pH of 7.52, pCO2 of 19, pO2 of 141, that was on pressure control ventilation with a FiO2 of 40% and PEEP of 10. IMAGING DATA: Chest x-ray shows some improvement in bilateral infiltrative changes since yesterday. ASSESSMENT: 1. Acute respiratory failure with hypoxemia. 2. Aspiration pneumonia. 3. Rhabdomyolysis. 4. Acute renal insufficiency. 5. Hypokalemia. 6. Transaminitis likely from shock liver. PLAN: 1. Spontaneous breathing trial. Consider extubation if tolerates. 2. I have a feeling that the patient was down much longer than reported by her fiance. The rhabdomyolysis indicates that she probably had not moved in several days. I am suspicious that she may be a substance abuser. 3. Continue antibiotics. 4. Wean steroids. Job ID: [id number]
[2019-03-16 14:58] LABS: Potassium 3.5 mmol/L (3.5-5.1)
[2019-03-16] MEDS: Vancomycin HCl 1 GM in Premix Bag 1 BAG IVPB SCH ×2 (15:24→16:00)
--- NOTE | 2019-03-16 16:13 | CON ---
DATE OF CONSULTATION: REASON FOR CONSULT: Coffee-ground emesis. HISTORY OF PRESENT ILLNESS: Ms. Caraballo is a 54-year-old female. History comes from reviewing the chart, talking with ICU doctors and nurses and her fiance who is at the bedside. She is a 54-year-old female, who was admitted to the hospital last night. She came into the emergency room, brought in unresponsive by EMS. Her fiance reports that she had gone to bed the night before and was doing fine and then did not wake up. Around 1 or 2, he tried to arouse her and ultimately could not. EMS apparently found some vomitus coffee-ground material. She was intubated en route with endotracheal tube. It is unclear if she was given Romazicon or Narcan. She did not ventilate well, and Pulmonary was consulted and bronched her and she had a lot of signs of aspiration of coffee-ground material. Also, her NG tube returned coffee-ground material. Talking with the fiance, he notes she does take some sleeping pills at night, but denies any narcotic use. She used to be on pain medicines for back pain. He states she is only taking some cholesterol medicine and baby aspirin at present. He denies any NSAID use, but he does not really know a lot of better past history. Here in the hospital, she remains in the ventilator. Pulmonary was thinking about getting her extubated. Her hemoglobin was 10.6 on admission, is 10.2 today. Platelets are normal. Chemistry showed elevated BUN and creatinine on admission of 46 and 2.32, it is unclear what her baselines are. Her AST and ALT were up a bit at 14 and 115 on admission. Troponin was 2.021, today is 1.59. Albumin was 2.9 and protein was 7.4. Bilirubin was normal. Alkaline phosphatase was normal at 67. She has had no overt signs of bleeding overnight. She may get extubated today. I have been asked to see her for possible endoscopy before extubation to rule out GI sources of bleeding. PAST MEDICAL HISTORY: Hypertension, prior stroke, hyperlipidemia. PAST SURGICAL HISTORY: To remove spinal cord. She has a scar in the midline abdomen just above the umbilicus and she also has a scar on her left foot. Her significant other is unsure what the surgeries are for. ALLERGIES: REPORTEDLY INCLUDE TRAMADOL, COMPAZINE, METOCLOPRAMIDE, TORADOL, CODEINE. SOCIAL HISTORY: Significant other denies alcohol, drugs, or use of tobacco. Smokes half pack per day. REVIEW OF SYSTEMS: Unobtainable secondary to endotracheal tube. PRESENT MEDICATIONS: 1. Tylenol. 2. DuoNeb. 3. Fentanyl p.r.n. 4. Lorazepam p.r.n. 5. Solu-Medrol 20 mg IV q.12. 6. Morphine p.r.n. for pain. 7. Protonix 80 mg drip. 8. Zosyn. 9. Sodium chloride 150 an hour. 10. Vancomycin. PHYSICAL EXAMINATION: GENERAL: Presently, she is intubated. She does respond when her name is called. She opens her eyes. Does not follow commands. VITAL SIGNS: Pulse is 108, blood pressure is 152/92, respirations are 15, temperature is 100.6. HEENT: She is nonicteric. Her mucous membranes are pink and moist. She has no stigmata of chronic liver disease in the skin. NECK: Supple without any adenopathy. LUNGS: Clear. HEART: Regular without clicks, rubs, or murmurs. ABDOMEN: Notable for short about 4 cm midline scar above the umbilicus. There is no evidence of hernia. Abdomen is soft and nontender. There is no palpable hepatosplenomegaly. Bowel sounds are positive. EXTREMITIES: Reveal no clubbing, cyanosis, or edema. There is scar in the left foot. There is no inguinal adenopathy. There is no pitting edema. LABORATORY STUDIES: Sodium 143, potassium 3.4, BUN and creatinine 46 and 2.32, glucose 110, calcium 7.2. AST and ALT from yesterday were 214 and 115. CK was 18,348 today and 18,441 yesterday. Today, potassium is 3.4, BUN and creatinine 52 and 2.2. AST and ALT are 449 and 239. Procalcitonin 2.51. Urine, moderate blood, otherwise negative. Tox screen negative. Salicylates negative. Acetaminophen. Positive for opiates, positive for benzodiazepines. Negative for alcohol. Hepatitis B and C and HIV all are negative. Syphilis screen nonreactive. White count 13.3, hemoglobin 10.2, platelet count 188. ASSESSMENT: This is a 54-year-old female, who was found down. She has been shown to have rhabdomyolysis, which would indicate she was down more than just overnight, but her fiance states that she was up and active the day before her admission and just after not waking up the next morning up to 1 or 2 in the afternoon that he finally summoned to EMS. He denies any drug use. The patient has a positive benzo and opiate screen. I suspect that this maybe an opiate overdose, although we will have to maybe confirm now when she is extubated. 1. Coffee-ground emesis. This may have just been related to her being down and vomiting and aspirating, but she does have some anemia and history of aspirin use. She has a history of previous spinal tumor for which she was on pain medicines. It maybe that she is taking NSAIDs, but her fiance does not know about if she is taking any of these. 2. Elevated liver enzymes, likely related to rhabdomyolysis. RECOMMENDATIONS: 1. Continue aggressive rehydration and monitor renal function. 2. We will perform an EGD today to see if she has any ulcers or if this was all just probably stress ulceration from being down. If this is negative, we can go ahead and switch her to prophylactic PPI and stop the drip. We will get this done this afternoon. I have talked with the fiance about risks, benefits, and possible complications of endoscopy, and we will go ahead and proceed with that today. I have talked with the ICU doctor as well about this and he is going to keep her intubated here in the ICU so we can get that done. Job ID: [id number]
[2019-03-16] MEDS ORDERED: PROPOFOL 200 MG/20 ML VIAL ONE (16:35)
[2019-03-16 17:09] LABS: Creatinine, Urine 117.09 mg/dL (47-110)
[2019-03-16] MEDS ORDERED: Diazepam 5 MG TAB PO PRN (17:18)
[2019-03-16] MEDS ORDERED: Diazepam 5 MG TAB PO SCH (17:30)
[2019-03-16] MEDS ORDERED: Thiamine HCl 200 MG/2 ML VIAL IM SCH (17:30)
[2019-03-16] MEDS: Labetalol HCl 100 MG/20 ML VIAL SLOW IVP PRN (18:09)
--- NOTE | 2019-03-16 19:32 | OP ---
DATE OF PROCEDURE: 03/16/2019 PREPROCEDURE DIAGNOSES: 1. Altered mental status, found down for rhabdomyolysis, likely narcotic/benzodiazepine overdose. 2. Coffee-grounds emesis. 3. Rhabdomyolysis. 4. Anemia. POSTPROCEDURE DIAGNOSES: 1. Severe erosive esophagitis, consistent with emetogenic injury. 2. Retained food in the body of the stomach and fundus. 3. Normal antrum, duodenum and second and third portions. 4. No evidence of active bleeding. RECOMMENDATIONS: 1. Continue NG tube suction. 2. IV Protonix q.12 hours. 3. If there is further bleeding, we can re-evaluate her as there are no signs of acute bleeding and this was treated with PPIs. This is likely related to severe dehydration and vomiting. 4. Consider referral for drug intervention and rehabilitation. At time of discharge, I have talked with the patient's daughter, whom I got consent for the procedure. She states she has been history of substance abuse in the past. ANESTHESIA: TIVA. PROCEDURE IN DETAIL: The patient was informed of the risks, benefits, possible complications of endoscopy including perforation, bleeding, reaction to medication and aspiration. Dr. Lyle gave me consent over the phone. She was already intubated in ICU. Once she was sedated, the endoscope was advanced to the esophagus, stomach, and second and third portion of duodenum and slowly removed. There was severe erosive esophagitis. The distal two-third of the esophagus consistent with emetogenic injury and reflux. This all looked fairly acute. It is likely related to her episode of being found down. The stomach was entered. There was some retained food. There was no blood noted. Retroflexed views revealed the proximal stomach and cardia obscured by retained food. There was no evidence of gastritis in the body, antrum, and pyloric area. The duodenum was normal in the second and third portions. The scope was then removed. The patient tolerated the procedure well. There were no complications. Findings were discussed with the patient's daughter over the phone. Job ID: [id number]
[2019-03-16] MEDS: hydrALAZINE 20 MG/ML VIAL SLOW IVP PRN (20:59)
[2019-03-16] MEDS: Pantoprazole 40 MG VIAL IVP SCH (21:00)
--- NOTE | 2019-03-16 23:28 | PDOC.EVN ---
Event Note - Event Note Event Note: nursing informed patient agitated inspite of ativan from ASE protocol. Ativan provides 30 min of resolution of sx. Has almost pulled orth out 3 times. Will start precedex gtt in addition to ASE protocol.
[2019-03-17] MEDS: Labetalol HCl 100 MG/20 ML VIAL SLOW IVP PRN (00:05)
[2019-03-17] MEDS: Sodium Chloride 0.9% 1,000 ML IV SCH (03:30)
[2019-03-17] MEDS ORDERED: Diazepam 5 MG TAB PO PRN (04:00)
[2019-03-17] MEDS: Piperacillin/Tazobactam 2.25 GM in Sodium Chloride 0.9% 100 ML IVPB SCH ×4 (04:12→21:10)
[2019-03-17 05:05] LABS: Calc. Creatinine Clearance 78 mL/min (70-130); Estimated GFR-MDRD 54
[2019-03-17 05:06] LABS: ALT (SGPT) 349 U/L (8-55); AST (SGOT) 640 U/L (5-34); Albumin 2.9 g/dL (3.5-5.0); Alkaline Phosphatase 58 U/L (40-150); Anion Gap 12 mmol/L (10-20); BUN (Urea Nitrogen) 43 mg/dL (9.8-20.1); Bilirubin, Total 0.3 mg/dL (0.2-1.2); Carbon Dioxide 20 mmol/L (22-29); Chloride 118 mmol/L (98-107); Globulin 2.2 g/dL (2.4-3.5); Glucose 109 mg/dL (70-105); Potassium 3.3 mmol/L (3.5-5.1); Protein, Total 5.1 g/dL (6.0-8.3); Sodium 147 mmol/L (136-145)
[2019-03-17 05:29] LABS: CK (CPK) 24996 U/L (29-168)
[2019-03-17] MEDS: methylPREDNISolone Sod Succ 40 MG VIAL IVP SCH (06:00)
[2019-03-17] MEDS ORDERED: Potassium Chloride 40 MEQ in Premix Bag 1 BAG IVPB SCH (06:30)
[2019-03-17] MEDS ORDERED: Lactated Ringer's 1,000 ML IV SCH (06:45)
--- NOTE | 2019-03-17 07:01 | PDOC.FM ---
- Subjective Subjective: Pt was agitated yesterday evening and last night. She received 10mg of Valium and was started on Precedex 50ml/hr. She was resting comfortably in bed this morning. She is alert and oriented x2 this am. She does not remember anything prior to being at the hospital. She denies opiate use and other illicit drug use. She states that she uses [facility] for scripts for HTN and HLD and says she takes atorvastatin. She can't remember who her PCP is though. - Objective MAR Reviewed: Yes Vital Signs & Weight: Vital Signs (12 hours) Pulse Resp BP Pulse Ox 03/17/19 06:51 99 03/17/19 06:49 79 31 H 99 03/17/19 02:25 99 24 H 90 L 03/17/19 00:05 124 H 186/112 H 03/16/19 22:08 124 H 28 H 92 L 03/16/19 20:59 85 171/118 H 03/16/19 20:00 98 Weight Admit Weight 81.5 kg Weight 82.4 kg Most Recent Monitor Data Heart Rate from ECG 80 NIBP 137/87 NIBP BP-Mean 103 Respiration from ECG 29 SpO2 98 I&O: 03/15/19 03/16/19 03/17/19 06:59 06:59 06:59 Intake Total 1610.3 2243.6 Output Total 2470 1560 Balance -859.7 683.6 Result Diagrams: 03/17/19 06:43 03/17/19 04:00 Phys Exam - Physical Examination Constitutional: NAD dry mucous membranes Respiratory: no wheezing crackles left sided upper lobe Cardiovascular: RRR Gastrointestinal: soft, non-tender, no distention Musculoskeletal: no edema, pulses present Deviation from normal: alert and oriented x2 Skin: no rash Dx/Plan (1) Acute respiratory failure with hypoxia and hypercapnia Code(s): J96.01 - ACUTE RESPIRATORY FAILURE WITH HYPOXIA; J96.02 - ACUTE RESPIRATORY FAILURE WITH HYPERCAPNIA Status: Acute (2) Sepsis Code(s): A41.9 - SEPSIS, UNSPECIFIED ORGANISM Status: Acute (3) Acute blood loss anemia Code(s): D62 - ACUTE POSTHEMORRHAGIC ANEMIA Status: Acute (4) Encephalopathy acute Code(s): G93.40 - ENCEPHALOPATHY, UNSPECIFIED Status: Acute (5) Upper GI bleeding Code(s): K92.2 - GASTROINTESTINAL HEMORRHAGE, UNSPECIFIED Status: Suspected (6) Elevated troponin Code(s): R74.8 - ABNORMAL LEVELS OF OTHER SERUM ENZYMES Status: Acute (7) Hypokalemia Code(s): E87.6 - HYPOKALEMIA Status: Acute (8) LUCÍA (acute kidney injury) Code(s): N17.9 - ACUTE KIDNEY FAILURE, UNSPECIFIED Status: Acute (9) Transaminitis Code(s): R74.0 - NONSPEC ELEV OF LEVELS OF TRANSAMNS & LACTIC ACID DEHYDRGNSE Status: Acute (10) Opiate use Code(s): F11.90 - OPIOID USE, UNSPECIFIED, UNCOMPLICATED Status: Acute (11) History of benzodiazepine use Code(s): Z87.898 - PERSONAL HISTORY OF OTHER SPECIFIED CONDITIONS Status: Acute - Plan Plan: Plan: 54 yo f admitted for acute hypoxic hypercapnic respiratory failure 2/2 aspiration pneumonitis and acute blood loss anemia 2/2 suspected upper GI bleed , possible GI ulcer, sepsis 2/2 aspiration pneumonitis/pneumonia, and acute metabolic vs toxic encephalopathy d/t ?opiate and benzodiazepine misuse/abuse. 1. Acute hypoxic, hypercapnic, respiratory failure 2/2 aspiration pneumonia: -Hypoxia and hypercapnia resolved -pt exubated yesterday after EGD performed -continue abx for aspiration pneumonia -requiring 2-3L O2 currently; wean as tolerated 2. Erosive esophagiitis 2/2 aspiration- -Occult blood on gastric contents positive. -EGD showed evidence of erosive esophagiitis but no acute bleeding -Appreciate recs from GI -will continue PPI IV q12h -Will continue to trend H/H 3. Sepsis-2/2 aspiration pneumonia. -sepsis resolved - Continue vanc and zosyn at this time. Sensitivities pending. - CXR with worsening left sided infiltrate. - ok to dc steroids 4. Aspiration pneumonia-see #3 5. Benzodiazepine withdrawal- -Pt started on precedex overnight -Plan to wean today -Pt has ase protocol and Valium 5mg prn for ASE>10 -speech eval for swallow study 6. Rhabdomyolysis-CK ~23474, will trend; switched NS to D5W with bicarb, as pt is increasingly hyperchloremic, with uptrending CK, consider increasing rate of fluids and/or bolus if indicated. 7. LUCÍA: Prenal. Resolved. Continue IV fluids for rhabdo. No muddy brown casts seen on urine microscopy. FeNa .5% 8. Demand ischemia: trend trops, no ASA or anticoagulation due to #2 9. Acute metabolic/toxic encephalophathy: -GCS 14 -a&ox2 -agitated overnight. started on precedex. plan to wean as tolerated. pt has ase protocol for benzo withdrawal with Valium 5mg prn for ase>10. -likely related to suspected combined overdose of opiates and benzo combination. Monitor neuro status as sedation is titrated down. Consider MRI if no improvement or focal deficits are identified. Ammonia wnl 10. Transaminitis: hepatitis panel negative. Ammonia negative. Ruq us wnl. No known dx of cirrhosis. Fiance denies alcohol use in pt. uptrending AST/ALT. 11. Hypokalemia-replaced again this am. Will recheck this afternoon and replace as indicated. 12.Normocytic anemia-continue to trend H/H. 13. Opiate use-concern for abuse and dependence PPx: protonix Diet: NPO, pending speech eval for swallow study CODE: FULL Dispo: Inpatient, ICU, >[address] Espinosa Addendum - Attending - Attending Attestation Date/Time: 03/17/19 1100 I personally evaluated the patient and discussed the management with Dr. Brady. I agree with the History, Examination, Assessment and Plan documented above with any addition or exceptions noted below.
[2019-03-17 07:05] LABS: Hemoglobin 9.6 g/dL (12.0-16.0); Mean Corpuscular HGB CONC 32.8 g/dL (32.0-36.0); Mean Corpuscular Hemoglobin 30.1 pg (27.0-31.0); Mean Corpuscular Volume 91.9 fL (78.0-98.0); Mean Platelet Volume 7.9 fL (7.4-10.4); Platelet Count 201 thou/uL (130-400); RBC Distribution Width 12.8 % (11.5-14.5); Red Blood Cell (RBC) Count 3.19 mill/uL (4.20-5.40)
[2019-03-17 07:35] LABS: Band 23 % (5-11); Lymphocytes 8 % (21-51); MDiff Complete? YES; Monocytes 4 % (0-10); Neutrophil 65 % (42-75); Platelet Morphology Comment Appears Adequate; Polychromasia SLIGHT = 2-3 cells (100X) (0-2/hpf)
--- NOTE | 2019-03-17 08:02 | RAD ---
Portable chest: HISTORY: CCU follow-up. Pneumonia. COMPARISON: 03/16/2019 FINDINGS:There are bilateral alveolar infiltrates, more extensive in the left lung. Infiltrates have progressed when compared to yesterday. ET tube and NG tube have been removed. IMPRESSION:Increasing lung infiltrates
--- NOTE | 2019-03-17 08:33 | PRG ---
DATE OF SERVICE: 03/17/2019 35 minutes of critical care time. SUBJECTIVE: The patient remains in the CCU. She was successfully extubated yesterday. She was confused last night and agitated. She required initiation of Precedex drip. She will verbalize this morning, but does not seem to be truthful in any of her answers. OBJECTIVE: VITAL SIGNS: Temperature is 99.7, pulse 80, blood pressure 137/87. A 24-hour intake 2243, output 1516. HEENT: Unremarkable. NECK: No JVD. LUNGS: Coarse rhonchi with left greater than right. CARDIAC: S1, S2. Regular. ABDOMEN: Soft. Nontender. EXTREMITIES: No clubbing, cyanosis, or edema. LABORATORY DATA: Sodium 147, potassium 3.3, chloride 118, CO2 of 20, BUN 43, creatinine 1.1, glucose 109. AST is 640, ALT 349, CK is 24,996. Albumin 2.9. White blood cell count 17.0, hematocrit 29.3, and platelet count 201. Her micro cultures are growing out Staph from the bronchoscopy that was done on 03/15. X-ray shows bilateral infiltrates, left greater than right. ASSESSMENT: 1. Acute hypoxic respiratory failure. 2. Bilateral pneumonia, aspiration. 3. Rhabdomyolysis. 4. Transaminitis. 5. Acute renal insufficiency. 6. Hypokalemia. 7. Probable substance abuse. PLAN: 1. The patient remains on a Precedex drip to help with agitation. That will necessitate her staying in CCU for at least 24 more hours. 2. Continue with IV antibiotics and consolidate based on ultimate sensitivities from the Staph aureus. 3. Check echocardiogram to rule out endocarditis given the Staph aureus is a very unusual thing to see in community-acquired pneumonia. 4. Change IV fluids to D5W with bicarbonate to give her hypotonic solution that should also help with the rhabdomyolysis. 5. Stop the diazepam. 6. Stop the corticosteroids. 7. Continue thiamine supplementation. 8. Follow serial chest x-rays. 9. Initiate clear liquids. 10. Discontinue central line. Job ID: [id number]
[2019-03-17] MEDS: Sodium Bicarbonate 70 MEQ in Dextrose 5% in Water 1,000 ML IV SCH ×3 (09:41→18:05)
[2019-03-17] MEDS: Magnesium Oxide 400 MG TAB PO SCH ×3 (09:59→11:36)
[2019-03-17] MEDS: Folic Acid 1 MG TAB PO SCH ×2 (09:59→11:35)
[2019-03-17] MEDS: Thiamine 100 MG TAB PO SCH ×2 (09:59→11:35)
[2019-03-17] MEDS: Pantoprazole 40 MG VIAL IVP SCH ×2 (09:59→20:01)
[2019-03-17] MEDS: Sodium Chloride 0.9% (PF) 10 ML VIAL FS PRN ×2 (09:59→20:02)
[2019-03-17] MEDS: Multivitamin W/ Minerals 1 TAB PO SCH ×2 (09:59→11:36)
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
--- NOTE | 2019-03-17 14:43 | PQF ---
HAN ANTHONY HANNA *r [id number] CLINICAL DOCUMENTATION IMPROVEMENT CLARIFICATION FORM: ICD-10 Updated PLEASE DO AN ADDENDUM TO THE PROGRESS NOTE WITH ANY DOCUMENTATION UPDATES OR ADDITIONS AND CARRY THROUGH TO DC SUMMARY. THANK YOU. DATE: 03-17-19 ATTN: DR. JYOTHI NUÑEZ / DR. RIVERA Please exercise your independent, professional judgment in responding to the clarification form. Clinical indicators are provided on the bottom of this form for your review Please check appropriate box(s): [ ] NSTEMI (DC type I) [ ] NSTEMI due to Demand Ischemia (AMI Type II) [ x ] Demand Ischemia without DC [ ] Other diagnosis [ ] Unable to determine CLINICAL INDICATORS - SIGNS / SYMPTOMS / LABS LABS: TROPONIN I 5-7 @ 0012 2.021 5-7 @ 1616 1.591 5-7 @ 2109 2.035 5-7 H&P (JUAN): NSTEMI: TROP 1.59. WILL TREND. LIKELY 2/2 DEMAND 5-8 (JUAN) PN: DEMAND ISCHEMIA: TEND TROPS, NO ASA OR ANTICOAGULATION DUE TO ACUTE BLD LOSS ANEMIA RISKS: 5-7 H&P (JUAN): HTN; HLD; 5-8 (JUAN) PN: SEPSIS; ACUTE RESPIRATORY FAILURE W/ HYPOXIA AND HYPERCAPNIA; ASPIRATION PNA/PNEUMONITIS TREATMENTS: COPE: * CCU MONITORING (03-15 TO PRESENT) * PULMONOLOGY CONSULT (03-15-19) * SERIAL CHEST X-RAYS (03-15/-8/ 03-17) * ON VENT 5-7 @ 1803 - OFF VENT 5-8 @ 1046 MAR: ZOSYN IV 5-7 TO 5-9 VANCOMYCIN IV 5-8 DUONEB 5-7 TO - THANK YOU, BHAVNA (This form is maintained as a part of the permanent medical record) 2015 [employer]. All Rights Reserved Bhavna Arceo, RN, BS [email or web address] [facility]
[2019-03-17] MEDS: Lorazepam 2 MG/ML VIAL SLOW IVP PRN (15:13)
[2019-03-17 15:14] LABS: Actual Bicarbonate (HCO3a) 15.9 mEq/L (22-28); Base Excess (BEa) -6.2 mEq/L (-2.0 to +3.0); Calcium, Ionized 1.15 mmol/L (1.12-1.30); Carboxyhemoglobin (COHb) 0.8 gm% (0.0-3.0); Hemoglobin (Hb) 10.2 g/dL (12.0-16.0); Potassium - ABG Lab 3.48 mmol/L (3.70-5.30); pH, Arterial 7.48 (7.35-7.45)
[2019-03-17 15:29] LABS: CO2 Tension 21.9 mmHg (35.0-45.0); O2 Tension (PaO2) 49.2 mmHg (80.0-100.0)
[2019-03-17 15:30] LABS: ALV-art Gradient 151.585 (0-20); Puncture Site LRA
[2019-03-17] MEDS ORDERED: Morphine 2 MG/ML SYRINGE SLOW IVP SCH (16:00)
[2019-03-17] MEDS ORDERED: Furosemide 40 MG/4 ML VIAL SLOW IVP SCH (16:00)
[2019-03-17] MEDS ORDERED: Dextrose 5% in Water 1,000 ML IV SCH (16:15)
[2019-03-17] MEDS ORDERED: Morphine 2 MG/ML SYRINGE SLOW IVP PRN (16:17)
--- NOTE | 2019-03-17 16:21 | PDOC.EVN ---
Event Note - Event Note Event Note: Continued agitation despite being placed on precedex. Gave ativan 2mg and ordered 2mg q2h prn. Pt still agitated, tachycardic, tachypnic, hypoxic. ABG shows respiratory alkalosis. Transitioned pt to HF NC. Gave morphine 2mg IV as well. Pt's vitals improved and pt is more comfortable now. Dr. Shaw at bedside. Will continue to monitor.
[2019-03-17 16:23] LABS: Vancomycin, Trough 9.8 ug/mL
[2019-03-17] MEDS ORDERED: Vancomycin HCl 1.75 GM in Sodium Chloride 0.9% 500 ML IVPB SCH (17:00)
[2019-03-18] MEDS: Piperacillin/Tazobactam 2.25 GM in Sodium Chloride 0.9% 100 ML IVPB SCH (03:49)
[2019-03-18] MEDS: Labetalol HCl 100 MG/20 ML VIAL SLOW IVP PRN ×2 (05:06→18:29)
[2019-03-18 05:55] LABS: #Eosinphils 0.1 thou/uL (0.0-0.7); #Lymphocytes 1.7 thou/uL (1.20-3.40); #Monocytes 0.7 thou/uL (0.11-0.59); #Neutrophils 13.5 thou/uL (1.40-6.50); %Basophils 0.1 % (0.0-1.0); %Eosinophils 0.3 % (0.0-10.0); %Lymphocytes 10.5 % (21.0-51.0); %Monocytes 4.6 % (0.0-10.0); %Neutrophils 84.4 % (42.0-75.0); Hemoglobin 9.7 g/dL (12.0-16.0); Mean Corpuscular HGB CONC 32.9 g/dL (32.0-36.0); Mean Corpuscular Hemoglobin 30.2 pg (27.0-31.0); Mean Corpuscular Volume 91.8 fL (78.0-98.0); Mean Platelet Volume 8.2 fL (7.4-10.4); Platelet Count 194 thou/uL (130-400); RBC Distribution Width 13.1 % (11.5-14.5)
[2019-03-18 06:16] LABS: ALT (SGPT) 405 U/L (8-55); AST (SGOT) 331 U/L (5-34); Albumin 2.9 g/dL (3.5-5.0); Alkaline Phosphatase 61 U/L (40-150); Anion Gap 15 mmol/L (10-20); BUN (Urea Nitrogen) 40 mg/dL (9.8-20.1); Bilirubin, Total 0.5 mg/dL (0.2-1.2); Calc. Creatinine Clearance 84 mL/min (70-130); Calcium 8.3 mg/dL (7.8-10.44); Carbon Dioxide 21 mmol/L (22-29); Chloride 114 mmol/L (98-107); Estimated GFR-MDRD 59; Globulin 2.5 g/dL (2.4-3.5); Glucose 102 mg/dL (70-105); Potassium 3.8 mmol/L (3.5-5.1); Protein, Total 5.4 g/dL (6.0-8.3); Sodium 146 mmol/L (136-145)
[2019-03-18 06:44] LABS: CK (CPK) 9810 U/L (29-168)
--- NOTE | 2019-03-18 07:01 | RAD ---
CHEST ONE VIEW: INDICATIONS: Pneumonia. COMPARISON: 03/17/2019 FINDINGS: There is improvement in the infiltrates involving the right lower lobe. Patchy opacities remain with in both lungs, though less prominent. No stacy pleural effusion or pneumothorax is evident. No acut e osseous abnormality is noted. IMPRESSION: Improving bilateral pulmonary infiltrates. The most improvement is seen within the right lower lobe. POS: BH
--- NOTE | 2019-03-18 07:15 | PDOC.FM ---
- Subjective Subjective: Pt transitioned to HF NC yesterday afternoon after continued education and found on ABG to be hypoxic. She at that time was also placed back on the precedex drip, and given ativan 2mg and morphine 2mg, with prn dosing available. Pt did pretty well overnight, but this morning was tachypneic with RR in the upper 30s. She was placed on bipap at that time. ABG just drawn showing a respiratory alkalosis while on bipap. Spoke with respiratory therapy and plan to decrease pressure support as well as FiO2 since PaO2 was 97.6. Pt resting comfortably now with VSS. - Objective Vital Signs & Weight: Vital Signs (12 hours) Temp Pulse Resp BP Pulse Ox 03/18/19 06:58 95 03/18/19 06:56 73 42 H 95 03/18/19 05:06 162/105 H 03/18/19 04:00 97.8 F 162/105 H 03/18/19 02:24 73 30 H 92 L 03/18/19 00:00 98.3 F 152/100 H 03/17/19 22:16 77 33 H 100 03/17/19 20:00 98.4 F 150/95 H 95 Weight Admit Weight 81.5 kg Weight 83 kg Most Recent Monitor Data Heart Rate from ECG 73 NIBP 133/93 NIBP BP-Mean 106 Respiration from ECG 33 SpO2 98 I&O: 03/17/19 03/18/19 03/19/19 06:59 06:59 06:59 Intake Total 2243.6 4546.6 Output Total 1560 2660 Balance 683.6 1886.6 Result Diagrams: 03/18/19 04:11 03/18/19 04:11 Phys Exam - Physical Examination Constitutional: NAD HEENT: PERRLA, moist MMs crackles left sided; wheezing left sided Cardiovascular: RRR, no significant murmur Gastrointestinal: soft, non-tender, no distention Musculoskeletal: no edema, pulses present Deviation from normal: alert and oriented x 2 Skin: no rash, normal turgor, cap refill <2 seconds Dx/Plan (1) Acute respiratory failure with hypoxia Code(s): J96.01 - ACUTE RESPIRATORY FAILURE WITH HYPOXIA Status: Acute (2) Opiate withdrawal Code(s): F11.23 - OPIOID DEPENDENCE WITH WITHDRAWAL Status: Acute (3) Aspiration pneumonia Code(s): J69.0 - PNEUMONITIS DUE TO INHALATION OF FOOD AND VOMIT Status: Acute (4) Rhabdomyolysis Code(s): M62.82 - RHABDOMYOLYSIS Status: Acute (5) Opiate abuse, episodic Code(s): F11.10 - OPIOID ABUSE, UNCOMPLICATED Status: Acute (6) Encephalopathy acute Code(s): G93.40 - ENCEPHALOPATHY, UNSPECIFIED Status: Acute (7) Sepsis Code(s): A41.9 - SEPSIS, UNSPECIFIED ORGANISM Status: Resolved (8) Hypokalemia Code(s): E87.6 - HYPOKALEMIA Status: Acute (9) Elevated troponin Code(s): R74.8 - ABNORMAL LEVELS OF OTHER SERUM ENZYMES Status: Acute (10) LUCÍA (acute kidney injury) Code(s): N17.9 - ACUTE KIDNEY FAILURE, UNSPECIFIED Status: Resolved (11) Transaminitis Code(s): R74.0 - NONSPEC ELEV OF LEVELS OF TRANSAMNS & LACTIC ACID DEHYDRGNSE Status: Acute (12) Opiate use Code(s): F11.90 - OPIOID USE, UNSPECIFIED, UNCOMPLICATED Status: Acute (13) History of benzodiazepine use Code(s): Z87.898 - PERSONAL HISTORY OF OTHER SPECIFIED CONDITIONS Status: Acute (14) Acute blood loss anemia Code(s): D62 - ACUTE POSTHEMORRHAGIC ANEMIA Status: Ruled-out Plan: ruled out (15) Upper GI bleeding Code(s): K92.2 - GASTROINTESTINAL HEMORRHAGE, UNSPECIFIED Status: Ruled-out (16) Acute respiratory failure with hypoxia and hypercapnia Code(s): J96.01 - ACUTE RESPIRATORY FAILURE WITH HYPOXIA; J96.02 - ACUTE RESPIRATORY FAILURE WITH HYPERCAPNIA Status: Resolved - Plan Plan: 54 yo f admitted for acute hypoxic hypercapnic respiratory failure 2/2 aspiration pneumonitis and acute blood loss anemia 2/2 suspected upper GI bleed , possible GI ulcer, sepsis 2/2 aspiration pneumonitis/pneumonia, and acute metabolic vs toxic encephalopathy d/t ?opiate and benzodiazepine misuse/abuse. 1. Acute hypoxic respiratory failure 2/2 aspiration pneumonia: -pt became agitated yesterday afternoon -ABG showed Respiratory alkalosis with hypoxia -pt transitioned to HF NC yesterday -Pt with tachypnea this morning, transitioned to Bipap -AB.5/ with pO2: 97.6; plan to wean FiO2 and pressure support and see how she tolerates it 2. Opiate and Benzodiazepine withdrawal- -attempted to wean yesterday by taking off the precedex, however she became increasingly agitated -precedex restarted yesterday; will keep on the precedex for now and consider weaning in a day or two once pt is more stable from a respiratory standpoint. -Pt has ase protocol and Ativan prn on board for ASE>10 3. Erosive esophagiitis 2/2 aspiration- -Occult blood on gastric contents positive. -EGD showed evidence of erosive esophagiitis but no acute bleeding -Appreciate recs from GI -will transition to PPI PO q12h -Will continue to trend H/H, stable currently -Cleared by speech for swallow 4. Sepsis-2/2 aspiration pneumonia. - sepsis resolved - Continue vanc and zosyn at this time. -respiratory cx growing S. aureus, E. coli, and Klebsiella -E. coli and klebsiella morris sensitive -CXR showing improvement in right side of lung 4. Aspiration pneumonia-see #3 -will likely treat for 7 days and transitioned to rocephin today; consider transition to po augmentin or omnicef after pt is transitioned out of the ICU 6. Rhabdomyolysis-CK down to ~9800; will continue to trend; switched NS to D5W with 70 meq of bicarb yesterday; will continue for one more day 7. LUCÍA: Prenal. Resolved. Continue IV fluids for rhabdo. No muddy brown casts seen on urine microscopy. FeNa .5% 8. Demand ischemia: resolved 9. Acute metabolic/toxic encephalophathy: -GCS 14 -a&ox2 -likely related to suspected combined overdose of opiates and benzo combination. Monitor neuro status as sedation is titrated down. Consider MRI if no improvement or focal deficits are identified. Ammonia wnl -continue precedex gtt today -consider weaning tomorrow or the next day pending respiratory status 10. Transaminitis: -hepatitis panel negative. Ammonia negative. Ruq us wnl. No known dx of cirrhosis. Fiance denies alcohol use in pt. uptrending AST/ALT. 11. Hypokalemia- -resolved 12. Normocytic anemia-continue to trend H/H. 13. Opiate and benzodiazepine use/abuse and withdrawal-see above PPx: protonix, lovenox Diet: clear liquids CODE: FULL Dispo: Inpatient, ICU, >2 midnights. Addendum - Attending - Attending Attestation Date/Time: 03/18/19 1100 I personally evaluated the patient and discussed the management with Dr. Brady. I agree with the History, Examination, Assessment and Plan documented above with any addition or exceptions noted below. Improving in many ways but respiratory and opioid/benzo withdrawal status is tenuous. Appreciate Dr Shaw's care and expertise.
[2019-03-18 07:42] LABS: Actual Bicarbonate (HCO3a) 22.4 mEq/L (22-28); CO2 Tension 28.6 mmHg (35.0-45.0); Calcium, Ionized 1.12 mmol/L (1.12-1.30); Carboxyhemoglobin (COHb) 0.6 gm% (0.0-3.0); Hemoglobin (Hb) 9.7 g/dL (12.0-16.0); O2 Tension (PaO2) 97.6 mmHg (80.0-100.0); Potassium - ABG Lab 3.57 mmol/L (3.70-5.30); pH, Arterial 7.51 (7.35-7.45)
[2019-03-18 07:46] LABS: Puncture Site RRA
[2019-03-18] MEDS: Folic Acid 1 MG TAB PO SCH (09:16)
[2019-03-18] MEDS: Multivitamin W/ Minerals 1 TAB PO SCH (09:16)
[2019-03-18] MEDS: Magnesium Oxide 400 MG TAB PO SCH (09:16)
[2019-03-18] MEDS: Pantoprazole 40 MG VIAL IVP SCH ×2 (09:16→19:28)
[2019-03-18] MEDS: Enoxaparin Sodium 40 MG/0.4 ML SYRINGE SC SCH (09:16)
[2019-03-18] MEDS: Thiamine 100 MG TAB PO SCH (09:16)
[2019-03-18] MEDS: Sodium Chloride 0.9% (PF) 10 ML VIAL FS PRN ×2 (09:16→19:28)
[2019-03-18] MEDS: cefTRIAXone\\ROCEPHIN 2 GM in Sodium Chloride 0.9% 100 ML IVPB SCH (09:34)
--- NOTE | 2019-03-18 10:08 | PRG ---
DATE OF SERVICE: 03/18/2019 SUBJECTIVE: She is on noninvasive ventilation this morning. She will wake up and verbalize some. Does not appear to be in any overt distress other than spells of tachypnea. OBJECTIVE: VITAL SIGNS: Temperature is 99.0, pulse 73, blood pressure 133/93, O2 saturation 98%. A 24-hour intake 4546, output 2660. HEENT: Unremarkable. NECK: No JVD. LUNGS: Some inspiratory crackles heard bilaterally. CARDIAC: S1 and S2. Regular. ABDOMEN: Soft and nontender. EXTREMITIES: No edema. LABORATORY DATA: Sodium 146, potassium 3.8, chloride 114, CO2 of 21, BUN 40, creatinine 0.9, glucose 102. CPK is down 9810. AST 331, ALT 405, albumin 2.9. Chest x-ray shows continued bilateral upper lobe infiltrates, cultures. She has pansensitive Staph aureus and she has pansensitive E. coli and Klebsiella growing on the bronch. Staphylococcal sensitivities have not been reported yet. ASSESSMENT: 1. Polymicrobial aspiration pneumonia. 2. Acute respiratory failure requiring mechanical ventilation. 3. Likely substance abuse - I suspect narcotics and perhaps even benzodiazepines. 4. Rhabdomyolysis. 5. Transaminitis. 6. Acute renal insufficiency, which is improving. PLAN: 1. Continue Precedex drip. 2. Wean off BiPAP as tolerated. 3. Change antibiotics to Rocephin. 4. Continue bicarb drip for another 24 hours, then stop. Job ID: [id number]
[2019-03-18] MEDS: Sodium Bicarbonate 70 MEQ in Dextrose 5% in Water 1,000 ML IV SCH ×2 (11:03→19:27)
[2019-03-18] MEDS: Acetaminophen 325 MG TAB PO PRN (19:27)
[2019-03-18] MEDS: hydrALAZINE 20 MG/ML VIAL SLOW IVP PRN (19:34)
[2019-03-18] MEDS: Lorazepam 2 MG/ML VIAL SLOW IVP PRN (21:04)
[2019-03-19] MEDS: Labetalol HCl 100 MG/20 ML VIAL SLOW IVP PRN ×2 (02:09→21:05)
[2019-03-19] MEDS: Lorazepam 2 MG/ML VIAL SLOW IVP PRN ×3 (02:27→22:40)
[2019-03-19 05:53] LABS: #Basophils 0.1 thou/uL (0.0-0.2); #Eosinphils 0.3 thou/uL (0.0-0.7); #Lymphocytes 2.5 thou/uL (1.20-3.40); #Monocytes 0.7 thou/uL (0.11-0.59); #Neutrophils 10.7 thou/uL (1.40-6.50); %Basophils 0.6 % (0.0-1.0); %Eosinophils 2.1 % (0.0-10.0); %Lymphocytes 17.3 % (21.0-51.0); %Monocytes 5.2 % (0.0-10.0); %Neutrophils 74.8 % (42.0-75.0); Hemoglobin 9.1 g/dL (12.0-16.0); Mean Corpuscular HGB CONC 32.4 g/dL (32.0-36.0); Mean Corpuscular Hemoglobin 29.7 pg (27.0-31.0); Mean Corpuscular Volume 91.7 fL (78.0-98.0); Mean Platelet Volume 7.4 fL (7.4-10.4); Platelet Count 225 thou/uL (130-400); RBC Distribution Width 12.7 % (11.5-14.5); Red Blood Cell (RBC) Count 3.07 mill/uL (4.20-5.40); White Blood Cell (WBC) Count 14.3 thou/uL (4.8-10.8)
[2019-03-19 06:18] LABS: ALT (SGPT) 357 U/L (8-55); AST (SGOT) 178 U/L (5-34); Albumin 2.8 g/dL (3.5-5.0); Alkaline Phosphatase 74 U/L (40-150); Anion Gap 12 mmol/L (10-20); BUN (Urea Nitrogen) 24 mg/dL (9.8-20.1); Bilirubin, Total 0.5 mg/dL (0.2-1.2); Calc. Creatinine Clearance 103 mL/min (70-130); Calcium 8.2 mg/dL (7.8-10.44); Carbon Dioxide 25 mmol/L (22-29); Chloride 107 mmol/L (98-107); Estimated GFR-MDRD 75; Globulin 2.5 g/dL (2.4-3.5); Glucose 94 mg/dL (70-105); Potassium 3.6 mmol/L (3.5-5.1); Protein, Total 5.3 g/dL (6.0-8.3); Sodium 140 mmol/L (136-145)
--- NOTE | 2019-03-19 06:23 | PDOC.FM ---
Addendum entered and electronically signed by Florence Brady MD 03/19/19 09:01: HFrEF-new, but could be attributed to sepsis from aspiration pneumonia, recommend repeat echo in 2-3 months. Not in acute exacerbation currently. Lisinopril 20mg daily restarted (home med for HTN), LUCÍA resolved, bps elevated. Addendum entered and electronically signed by Florence Brady MD 03/19/19 08:59: HTN-restarted Lisinopril at 20mg daily, LUCÍA rsolved. Pt mildly hypertensive and EF reduced. HLD-restared atorvastatin at 40mg daily Original Note: - Subjective Subjective: Alert and oriented x 3; Denies any opiate or benzo use in the past. Denies shortness of breath, chest pain. Slept well. Denies feeling agitated. Was weaned off of bipap yesterday afternoon and requiring 3-4L O2 via NC. - Objective MAR Reviewed: Yes Vital Signs & Weight: Vital Signs (12 hours) Temp Pulse Resp BP Pulse Ox 03/19/19 04:00 97.8 F 152/99 H 03/19/19 02:22 69 30 H 99 03/19/19 02:09 170/112 H 03/19/19 00:00 97.8 F 162/105 H 03/18/19 22:05 77 31 H 100 03/18/19 20:00 100.5 F H 98 03/18/19 19:44 175/113 H 03/18/19 19:34 83 175/113 H 03/18/19 18:29 83 179/100 H 03/18/19 18:25 80 40 H 100 Weight Admit Weight 81.5 kg Weight 82 kg Most Recent Monitor Data Heart Rate from ECG 65 NIBP 157/103 NIBP BP-Mean 121 Respiration from ECG 29 SpO2 100 I&O: 03/17/19 03/18/19 03/19/19 06:59 06:59 06:59 Intake Total 2243.6 4546.6 3877 Output Total 1560 2660 2197 Balance 683.6 1886.6 1680 Result Diagrams: 03/19/19 05:45 03/19/19 05:45 Phys Exam - Physical Examination Constitutional: NAD HEENT: PERRLA, moist MMs crackles left sided; wheezing diffusely Cardiovascular: RRR, no significant murmur Gastrointestinal: soft, non-tender, no distention Musculoskeletal: no edema, pulses present Neurological: non-focal, normal sensation, moves all 4 limbs Psychiatric: normal affect Skin: no rash, normal turgor, cap refill <2 seconds Dx/Plan (1) Acute respiratory failure with hypoxia Code(s): J96.01 - ACUTE RESPIRATORY FAILURE WITH HYPOXIA Status: Acute (2) Opiate withdrawal Code(s): F11.23 - OPIOID DEPENDENCE WITH WITHDRAWAL Status: Acute (3) Aspiration pneumonia Code(s): J69.0 - PNEUMONITIS DUE TO INHALATION OF FOOD AND VOMIT Status: Acute (4) Rhabdomyolysis Code(s): M62.82 - RHABDOMYOLYSIS Status: Acute (5) Opiate abuse, episodic Code(s): F11.10 - OPIOID ABUSE, UNCOMPLICATED Status: Acute (6) Encephalopathy acute Code(s): G93.40 - ENCEPHALOPATHY, UNSPECIFIED Status: Acute (7) Sepsis Code(s): A41.9 - SEPSIS, UNSPECIFIED ORGANISM Status: Resolved (8) Hypokalemia Code(s): E87.6 - HYPOKALEMIA Status: Acute (9) Elevated troponin Code(s): R74.8 - ABNORMAL LEVELS OF OTHER SERUM ENZYMES Status: Acute (10) LUCÍA (acute kidney injury) Code(s): N17.9 - ACUTE KIDNEY FAILURE, UNSPECIFIED Status: Resolved (11) Transaminitis Code(s): R74.0 - NONSPEC ELEV OF LEVELS OF TRANSAMNS & LACTIC ACID DEHYDRGNSE Status: Acute (12) Opiate use Code(s): F11.90 - OPIOID USE, UNSPECIFIED, UNCOMPLICATED Status: Acute (13) History of benzodiazepine use Code(s): Z87.898 - PERSONAL HISTORY OF OTHER SPECIFIED CONDITIONS Status: Acute (14) Acute blood loss anemia Code(s): D62 - ACUTE POSTHEMORRHAGIC ANEMIA Status: Ruled-out Plan: ruled out (15) Upper GI bleeding Code(s): K92.2 - GASTROINTESTINAL HEMORRHAGE, UNSPECIFIED Status: Ruled-out (16) Acute respiratory failure with hypoxia and hypercapnia Code(s): J96.01 - ACUTE RESPIRATORY FAILURE WITH HYPOXIA; J96.02 - ACUTE RESPIRATORY FAILURE WITH HYPERCAPNIA Status: Resolved - Plan Plan: 54 yo f admitted for acute hypoxic hypercapnic respiratory failure 2/2 aspiration pneumonitis, sepsis 2/2 aspiration pneumonia, and acute metabolic vs toxic encephalopathy d/t opiate and benzodiazepine misuse/abuse/overdose. 1. Acute hypoxic respiratory failure 2/2 aspiration pneumonia: -ABG showed Respiratory alkalosis with hypoxia, yesterday -transitioned to bipap yesterday -weaned off bipap yesterday afternoon, saturating well on 4L O2 NC 2. Opiate and Benzodiazepine withdrawal- -precedex restarted yesterday; will consider weaning today. -Pt has ase protocol and Ativan prn on board for ASE>10 3. HFrEF- -new -recommend outpatient follow-up/echo in 1-2 months -not currently volume overloaded -will consider starting BB and sylvia inh closer to discharge -still trending bun/cr and CK d/t pt's initial LUCÍA and rhabdo 3. Erosive esophagiitis 2/2 aspiration- -Occult blood on gastric contents positive. -EGD showed evidence of erosive esophagiitis but no acute bleeding -Appreciate recs from GI -will transition to PPI PO q12h -Will continue to trend H/H, stable currently -Cleared by speech for swallow 4. Sepsis-2/2 aspiration pneumonia. - sepsis resolved -transitioned to rocephin d/t sensitivities -procal downtrending -anticipate 7 day course for aspiration pneumonia -respiratory cx growing S. aureus, E. coli, and Klebsiella -E. coli and klebsiella morris sensitive -CXR showing improvement this am 4. Aspiration pneumonia-see #3 -will likely treat for 7 days and transitioned to rocephin yday (03/18); consider transition to po augmentin or omnicef after pt is transitioned out of the ICU 6. Rhabdomyolysis-CK down to 4500; will continue to trend; switched NS to D5W with 70 meq of bicarb yesterday; will dc today 7. LUCÍA: Prenal. Resolved. Continue IV fluids for rhabdo. No muddy brown casts seen on urine microscopy. FeNa .5% 8. Demand ischemia: resolved 9. Acute metabolic/toxic encephalophathy: -GCS 14 -a&ox3 -likely related to suspected combined overdose of opiates and benzo combination. Monitor neuro status as sedation is titrated down. -wean precedex gtt today 10. Transaminitis: -downtrending -hepatitis panel negative. -Ammonia negative. -Ruq us wnl. -No known dx of cirrhosis. 11. Hypokalemia- -resolved 12. Normocytic anemia-continue to trend H/H. 13. Opiate and benzodiazepine use/abuse and withdrawal-see above; hx confirmed by daughter, see event note. PPx: protonix, lovenox Diet: clear liquids CODE: FULL Dispo: Inpatient, ICU, >2 midnights, consider transfer to [facility] Addendum - Attending - Attending Attestation Date/Time: 03/19/19 6855 I personally evaluated the patient and discussed the management with Dr. Dixie Rizo. I agree with the History, Examination, Assessment and Plan documented above with any addition or exceptions noted below. Patient here for multiple reasons after being found down at home. In regards to suspected aspiration PNA- continues to have low grade fevers but WBC downtrending as is her PCT. Continue Rocephin and Pulm input. Wean O2 as tolerated, now on NC at 2L and sats are well. Rhabdo seems to be resolved. Stopping IV fluids as her CK is at same level at this time. PO hydrate. She continues to exhibit withdrawal symptoms. Continue Precedex and ASE protocol as needed. H/H stable so low suspicion for continued bleeding. Echo shows diminished EF in setting of no known history of CHF. Continue lisinopril and BP control and monitor for volume overload. This could be due to her acute and critical illness as she otherwise has no symptoms. Will need repeat echo in a few months to see if improved. No cardiology consult at this time unless she deteriorates. Advanced diet as tolerate since she is more lucid today. .
[2019-03-19 06:31] LABS: CK (CPK) 4555 U/L (29-168)
--- NOTE | 2019-03-19 08:34 | RAD ---
CHEST 1 VIEW: Date: 03/19/19 INDICATION: Pneumonia. COMPARISON: Prior exam dated 03/18/19. FINDINGS: Air space opacity involving both lungs, appears stable to comparison. No pleural effusion or pneumoth orax evident. Cardiomegaly stable. Osseous structures unchanged. IMPRESSION: Stable exam. POS: BH
[2019-03-19] MEDS: Pantoprazole 40 MG VIAL IVP SCH (09:00)
[2019-03-19] MEDS: cefTRIAXone\\ROCEPHIN 2 GM in Sodium Chloride 0.9% 100 ML IVPB SCH (09:23)
[2019-03-19] MEDS: Atorvastatin Calcium 40 MG TAB PO SCH (09:23)
[2019-03-19] MEDS: Folic Acid 1 MG TAB PO SCH (09:24)
[2019-03-19] MEDS: Magnesium Oxide 400 MG TAB PO SCH (09:24)
[2019-03-19] MEDS: Lisinopril 20 MG TAB PO SCH (09:24)
[2019-03-19] MEDS: Multivitamin W/ Minerals 1 TAB PO SCH ×2 (09:24→09:25)
[2019-03-19] MEDS: Enoxaparin Sodium 40 MG/0.4 ML SYRINGE SC SCH (09:24)
[2019-03-19] MEDS: Thiamine 100 MG TAB PO SCH (09:25)
--- NOTE | 2019-03-19 13:28 | PRG ---
DATE OF SERVICE: 03/19/2019 SUBJECTIVE: Caterina Caraballo remains O2 during the day and now is off BiPAP at night. OBJECTIVE: VITAL SIGNS: Heart rates in the 70s, blood pressure 160/108, respiratory rates in the high 20s, oximetry is 99. LUNGS: Clear. HEART: Regular rhythm. ABDOMEN: Soft. EXTREMITIES: Without asymmetry or edema. LABORATORY AND DIAGNOSTIC DATA: White count 14.3, hemoglobin 9.1, platelets 225. Sodium 140, potassium 3.6, chloride 107, bicarb 25, BUN 24, creatinine 0.79, albumin 2.8, AST is down from 331 to 178, ALT is down from 405 to 357, bilirubin is normal, alkaline phosphatase is normal. Chest x-ray shows ongoing haziness bilaterally. Her x-ray is unchanged. Intake and output, positive 1680. Echocardiogram done yesterday shows an ejection fraction of 30% to 35%. IMPRESSION AND PLAN: 1. Acute respiratory failure. 2. Polymicrobial aspiration pneumonia. 3. Suspected substance abuse. 4. History of rhabdo. 5. Elevated liver enzymes. 6. Improving renal insufficiency. We will try to wean her off Precedex today. She has been off BiPAP and much more coherent since just after midnight. Apparently, she continues antibiotics. We will stop the bicarb drip today. Job ID: [id number] [facility]
--- NOTE | 2019-03-19 18:00 | EKG ---
Test Reason : INTUBATED Blood Pressure : / mmHG Vent. Rate : 117 BPM Atrial Rate : 117 BPM P-R Int : 132 ms QRS Dur : 084 ms QT Int : 324 ms P-R-T Axes : 069 037 060 degrees QTc Int : 451 ms Sinus tachycardia T wave abnormality, consider anterior ischemia Abnormal ECG Confirmed by NATHALIE CARLSON DO ([id number]), loan expeditor FRANCES DOHERTY ([id number]) on 03/19/2019 6:00:08 PM Referred By: ALDO Confirmed By:NATHALIE CARLSON DO
[2019-03-19] MEDS ORDERED: hydrOXYzine 10 MG TAB PO PRN (21:23)
[2019-03-19] MEDS: hydrALAZINE 20 MG/ML VIAL SLOW IVP PRN (21:30)
[2019-03-20] MEDS: Lorazepam 2 MG/ML VIAL SLOW IVP PRN (04:56)
--- NOTE | 2019-03-20 06:41 | PDOC.FM ---
- Subjective Subjective: Pt comfortable in bed this morning. Was on precedex .7 overnight. Night nurse attempted to wean but patient was agitated and asking for ativan. - Objective MAR Reviewed: Yes Vital Signs & Weight: Vital Signs (12 hours) Temp Pulse BP Pulse Ox 03/20/19 04:00 98.9 F 03/20/19 00:00 98.7 F 158/88 H 03/19/19 22:36 157/77 H 03/19/19 21:30 78 181/117 H 03/19/19 21:05 83 172/100 H 03/19/19 20:00 98.4 F 153/81 H 96 Weight Admit Weight 81.5 kg Weight 83.5 kg Most Recent Monitor Data Heart Rate from ECG 72 NIBP 150/91 NIBP BP-Mean 110 Respiration from ECG 33 SpO2 99 I&O: 03/18/19 03/19/19 03/20/19 06:59 06:59 06:59 Intake Total 4546.6 3877 4100 Output Total 2660 2197 4728 Balance 1886.6 1680 -628 Result Diagrams: 03/20/19 06:26 03/20/19 06:26 Phys Exam - Physical Examination Constitutional: NAD diffuse wheezing bilaterally, crackles left upper lung Cardiovascular: RRR, no significant murmur Gastrointestinal: soft, non-tender, no distention Musculoskeletal: no edema, pulses present Neurological: non-focal Psychiatric: A&O x 3 Skin: no rash, cap refill <2 seconds Dx/Plan (1) Acute respiratory failure with hypoxia Code(s): J96.01 - ACUTE RESPIRATORY FAILURE WITH HYPOXIA Status: Acute (2) Opiate withdrawal Code(s): F11.23 - OPIOID DEPENDENCE WITH WITHDRAWAL Status: Acute (3) Aspiration pneumonia Code(s): J69.0 - PNEUMONITIS DUE TO INHALATION OF FOOD AND VOMIT Status: Acute (4) Rhabdomyolysis Code(s): M62.82 - RHABDOMYOLYSIS Status: Acute (5) Opiate abuse, episodic Code(s): F11.10 - OPIOID ABUSE, UNCOMPLICATED Status: Acute (6) Encephalopathy acute Code(s): G93.40 - ENCEPHALOPATHY, UNSPECIFIED Status: Acute (7) Sepsis Code(s): A41.9 - SEPSIS, UNSPECIFIED ORGANISM Status: Resolved (8) Hypokalemia Code(s): E87.6 - HYPOKALEMIA Status: Acute (9) Elevated troponin Code(s): R74.8 - ABNORMAL LEVELS OF OTHER SERUM ENZYMES Status: Acute (10) LUCÍA (acute kidney injury) Code(s): N17.9 - ACUTE KIDNEY FAILURE, UNSPECIFIED Status: Resolved (11) Transaminitis Code(s): R74.0 - NONSPEC ELEV OF LEVELS OF TRANSAMNS & LACTIC ACID DEHYDRGNSE Status: Acute (12) Opiate use Code(s): F11.90 - OPIOID USE, UNSPECIFIED, UNCOMPLICATED Status: Acute (13) History of benzodiazepine use Code(s): Z87.898 - PERSONAL HISTORY OF OTHER SPECIFIED CONDITIONS Status: Acute (14) Acute blood loss anemia Code(s): D62 - ACUTE POSTHEMORRHAGIC ANEMIA Status: Ruled-out Plan: ruled out (15) Upper GI bleeding Code(s): K92.2 - GASTROINTESTINAL HEMORRHAGE, UNSPECIFIED Status: Ruled-out (16) Acute respiratory failure with hypoxia and hypercapnia Code(s): J96.01 - ACUTE RESPIRATORY FAILURE WITH HYPOXIA; J96.02 - ACUTE RESPIRATORY FAILURE WITH HYPERCAPNIA Status: Resolved - Plan Plan: 54 yo f admitted for acute hypoxic hypercapnic respiratory failure 2/2 aspiration pneumonitis, sepsis 2/2 aspiration pneumonia, and acute metabolic vs toxic encephalopathy d/t opiate and benzodiazepine misuse/abuse/overdose. 1. Acute hypoxic respiratory failure 2/2 aspiration pneumonia: -NC weaned off this morning; saturating at 94% RA -duonebs prn for wheezing -pt seems stable to transition to IMCU -once sedation off, will pull roth as pt's UOP is more than adequate 2. Opiate and Benzodiazepine withdrawal- -attempted to wean precedex yesterday and last night; pt gets agitated, however plan to wean off precedex today; Ativan IV/PO ordered for pt if ASE>10. 3. HFrEF- -new -consider lasix prn based on volume status; not overloaded this morning -recommend outpatient follow-up/echo in 1-2 months -Lisinopril 20mg started yesterday (home med for HTN) -consider adding BB prior to discharge 3. Erosive esophagiitis 2/2 aspiration- -EGD showed evidence of erosive esophagiitis but no acute bleeding -Pantoprazole 40mg PO daily -Will continue to trend H/H, stable currently -Cleared by speech for swallow 4. Sepsis-2/2 aspiration pneumonia. - sepsis resolved -transitioned to rocephin d/t sensitivities -procal downtrending -anticipate 7 day course for aspiration pneumonia -respiratory cx growing S. aureus, E. coli, and Klebsiella -CXR showing mild improvement this am 4. Aspiration pneumonia-see #3 -will likely treat for 7 days and transitioned to rocephin yday (03/18); consider transition to po augmentin or omnicef after pt is transitioned out of the ICU 6. Rhabdomyolysis-resolving, dc'd fluids yesterday 7. LUCÍA: Prenal. Resolved. Continue IV fluids for rhabdo. No muddy brown casts seen on urine microscopy. FeNa .5% 8. Demand ischemia: resolved 9. Acute metabolic/toxic encephalophathy: -GCS 14 -a&ox3 -likely related to suspected combined overdose of opiates and benzo combination. Monitor neuro status as sedation is titrated down. -wean precedex gtt off today; pt has Ativan prn for ASE>10 10. Transaminitis: -downtrending -hepatitis panel negative. -Ammonia negative. -Ruq us wnl. -No known dx of cirrhosis. 11. Hypokalemia- -resolved 12. Normocytic anemia-continue to trend H/H. 13. Opiate and benzodiazepine use/abuse and withdrawal-see above; hx confirmed by daughter, see event note. PPx: protonix, lovenox Diet: advance diet as tolerated to regular/heart healthy CODE: FULL Dispo: consider transfer to [facility] Addendum - Attending - Attending Attestation Date/Time: 03/20/19 1476 I personally evaluated the patient and discussed the management with Dr. Dixie Rizo. I agree with the History, Examination, Assessment and Plan documented above with any addition or exceptions noted below. Patient overall stable. Continues to have agitation overnight with weaning of Precedex, however she is also requesting Ativan in the setting of opiate and benzo abuse in the past. We will initiate some long acting Diazepam and see if we can get her agitation controlled enough to d/c the Precedex. Avoid multiple pushes of Ativan if we can avoid, especially in IV form. Continue abx for presumed aspiration pna. Respiratory function improved, wean O2 as tolerated. Labs overall stable and PCT continues to trend down which is reassuring for treating her infection properly.
[2019-03-20 06:55] LABS: #Eosinphils 0.5 thou/uL (0.0-0.7); #Lymphocytes 1.9 thou/uL (1.20-3.40); #Neutrophils 12.2 thou/uL (1.40-6.50); %Basophils 0.2 % (0.0-1.0); %Lymphocytes 12.4 % (21.0-51.0); %Monocytes 6.1 % (0.0-10.0); %Neutrophils 78.4 % (42.0-75.0); Hemoglobin 9.4 g/dL (12.0-16.0); Mean Corpuscular HGB CONC 32.8 g/dL (32.0-36.0); Mean Corpuscular Hemoglobin 29.6 pg (27.0-31.0); Mean Corpuscular Volume 90.3 fL (78.0-98.0); Mean Platelet Volume 7.4 fL (7.4-10.4); Platelet Count 268 thou/uL (130-400); RBC Distribution Width 12.7 % (11.5-14.5); Red Blood Cell (RBC) Count 3.17 mill/uL (4.20-5.40); White Blood Cell (WBC) Count 15.6 thou/uL (4.8-10.8)
[2019-03-20 07:06] LABS: ALT (SGPT) 276 U/L (8-55); AST (SGOT) 126 U/L (5-34); Albumin 2.8 g/dL (3.5-5.0); Alkaline Phosphatase 74 U/L (40-150); Anion Gap 11 mmol/L (10-20); BUN (Urea Nitrogen) 15 mg/dL (9.8-20.1); Bilirubin, Total 0.7 mg/dL (0.2-1.2); CK (CPK) 3127 U/L (29-168); Calc. Creatinine Clearance 104 mL/min (70-130); Calcium 8.1 mg/dL (7.8-10.44); Carbon Dioxide 25 mmol/L (22-29); Chloride 108 mmol/L (98-107); Estimated GFR-MDRD 74; Globulin 2.3 g/dL (2.4-3.5); Glucose 94 mg/dL (70-105); Potassium 3.2 mmol/L (3.5-5.1); Protein, Total 5.1 g/dL (6.0-8.3); Sodium 141 mmol/L (136-145)
--- NOTE | 2019-03-20 07:41 | RAD ---
CHEST 1 VIEW: Date: 03/20/19 INDICATION: Pneumonia. COMPARISON: Prior exam dated 03/19/19. FINDINGS: Bilateral parenchymal opacities persist. No pneumothorax is evident. Heart size within normal limits. IMPRESSION: Stable exam. POS: BH
[2019-03-20] MEDS: cefTRIAXone\\ROCEPHIN 2 GM in Sodium Chloride 0.9% 100 ML IVPB SCH (08:36)
[2019-03-20] MEDS: Atorvastatin Calcium 40 MG TAB PO SCH (08:37)
[2019-03-20] MEDS: Enoxaparin Sodium 40 MG/0.4 ML SYRINGE SC SCH (08:37)
[2019-03-20] MEDS: Lisinopril 20 MG TAB PO SCH (08:38)
[2019-03-20] MEDS: Magnesium Oxide 400 MG TAB PO SCH (08:38)
[2019-03-20] MEDS: Folic Acid 1 MG TAB PO SCH (08:38)
[2019-03-20] MEDS: Multivitamin W/ Minerals 1 TAB PO SCH ×2 (08:38)
[2019-03-20] MEDS: Thiamine 100 MG TAB PO SCH (08:39)
[2019-03-20] MEDS ORDERED: Loperamide HCl 2 MG CAP PO SCH (11:30)
[2019-03-20] MEDS: Diazepam 5 MG TAB PO PRN ×4 (11:34→23:25)
[2019-03-20] MEDS: Acetaminophen 325 MG TAB PO PRN ×2 (14:20→22:34)
[2019-03-20] MEDS: hydrALAZINE 20 MG/ML VIAL SLOW IVP PRN (14:22)
--- NOTE | 2019-03-20 15:36 | PRG ---
DATE OF SERVICE: 03/20/2019 SUBJECTIVE: Ms. Caraballo is more alert, less fidgety in quicker to her answer questions. OBJECTIVE: VITAL SIGNS: She is afebrile. Heart rate is 93, blood pressure at noon was 168/101, respiratory rate 26, and oximetry is 96% on room air. LUNGS: Clear. HEART: Regular rhythm. ABDOMEN: Soft and nontender. EXTREMITIES: Without edema. LABORATORY DATA: White count 15.6, hemoglobin 9.4, platelets 268. Sodium 141, potassium 3.2, chloride 108, bicarb 25, BUN 15, and creatinine 0.8. IMPRESSION: 1. Acute respiratory failure secondary to polymicrobial aspiration pneumonia. 2. Suspected substance abuse. She has been restarted on Valium. 3. History of rhabdomyolysis. 4. Elevated liver enzymes. 5. Improving renal insufficiency. She actually in my opinion could be discharged home once she is walking. Her liver enzymes, electrolytes, and CBC can be trended as an outpatient. She needs to continue to push fluids. She takes Valium at home apparently, but short-acting anxiolytics might be better for her given the complications that led up to this admission. She is stable to transfer out of the Critical Care Unit. We will sign off. Job ID: [id number]
[2019-03-20] MEDS ORDERED: Lorazepam 1 MG TAB PO SCH (16:15)
[2019-03-20] MEDS: Lorazepam 1 MG TAB PO SCH (21:47)
[2019-03-21] MEDS ORDERED: Melatonin 3 MG TAB PO PRN (00:33)
[2019-03-21] MEDS ORDERED: Ibuprofen 800 MG TAB PO PRN (00:33)
[2019-03-21] MEDS ORDERED: Diazepam 5 MG TAB PO SCH (00:45)
[2019-03-21] MEDS: hydrALAZINE 20 MG/ML VIAL SLOW IVP PRN ×2 (01:10→18:27)
[2019-03-21] MEDS: Diazepam 5 MG TAB PO PRN ×3 (05:20→14:19)
[2019-03-21] MEDS: Acetaminophen 325 MG TAB PO PRN ×2 (05:20→12:55)
[2019-03-21 06:46] LABS: #Basophils 0.1 thou/uL (0.0-0.2); #Eosinphils 0.5 thou/uL (0.0-0.7); #Lymphocytes 3.2 thou/uL (1.20-3.40); #Monocytes 1.1 thou/uL (0.11-0.59); #Neutrophils 14.1 thou/uL (1.40-6.50); %Basophils 0.3 % (0.0-1.0); %Eosinophils 2.7 % (0.0-10.0); %Lymphocytes 16.6 % (21.0-51.0); %Monocytes 5.9 % (0.0-10.0); %Neutrophils 74.4 % (42.0-75.0); Hemoglobin 10.5 g/dL (12.0-16.0); Mean Corpuscular HGB CONC 34.3 g/dL (32.0-36.0); Mean Corpuscular Hemoglobin 30.5 pg (27.0-31.0); Mean Corpuscular Volume 89.1 fL (78.0-98.0); Mean Platelet Volume 7.3 fL (7.4-10.4); Platelet Count 402 thou/uL (130-400); RBC Distribution Width 12.8 % (11.5-14.5); Red Blood Cell (RBC) Count 3.45 mill/uL (4.20-5.40); White Blood Cell (WBC) Count 18.9 thou/uL (4.8-10.8)
[2019-03-21] MEDS: cefTRIAXone\\ROCEPHIN 2 GM in Sodium Chloride 0.9% 100 ML IVPB SCH (08:07)
[2019-03-21] MEDS: Magnesium Oxide 400 MG TAB PO SCH (08:08)
[2019-03-21] MEDS: Lisinopril 20 MG TAB PO SCH (08:08)
[2019-03-21] MEDS: Thiamine 100 MG TAB PO SCH (08:08)
[2019-03-21] MEDS: Multivitamin W/ Minerals 1 TAB PO SCH ×2 (08:08→08:10)
[2019-03-21] MEDS: Lorazepam 1 MG TAB PO SCH ×3 (08:08→21:03)
[2019-03-21] MEDS: Folic Acid 1 MG TAB PO SCH (08:08)
[2019-03-21] MEDS: Atorvastatin Calcium 40 MG TAB PO SCH (08:08)
[2019-03-21] MEDS: Enoxaparin Sodium 40 MG/0.4 ML SYRINGE SC SCH (08:09)
[2019-03-21 08:31] LABS: Albumin 3.3 g/dL (3.5-5.0)
[2019-03-21 08:32] LABS: Chloride 107 mmol/L (98-107); Potassium 3.1 mmol/L (3.5-5.1); Sodium 141 mmol/L (136-145)
[2019-03-21 08:33] LABS: Calcium 9.2 mg/dL (7.8-10.44)
[2019-03-21 08:34] LABS: Globulin 2.8 g/dL (2.4-3.5); Glucose 104 mg/dL (70-105); Protein, Total 6.1 g/dL (6.0-8.3)
[2019-03-21 08:35] LABS: Anion Gap 14 mmol/L (10-20); Bilirubin, Total 0.8 mg/dL (0.2-1.2); Carbon Dioxide 23 mmol/L (22-29)
[2019-03-21 08:36] LABS: Alkaline Phosphatase 86 U/L (40-150)
[2019-03-21 08:37] LABS: Calc. Creatinine Clearance 106 mL/min (70-130); Estimated GFR-MDRD 76
[2019-03-21 08:38] LABS: BUN (Urea Nitrogen) 11 mg/dL (9.8-20.1)
[2019-03-21 08:39] LABS: ALT (SGPT) 260 U/L (8-55); AST (SGOT) 98 U/L (5-34); CK (CPK) 2027 U/L (29-168)
--- NOTE | 2019-03-21 08:44 | RAD ---
CHEST 1 VIEW: Date: 03/21/19 HISTORY: Dyspnea. Follow-up. COMPARISON: 03/20/19. FINDINGS: Cardiac silhouette is magnified by projection. Pulmonary vasculature is less engorged than on the nasir or study. Right suprahilar infiltrate and bilateral perihilar infiltrates are unchanged in appearance from the previous exam. No evidence of pneumothorax. Elevation of the right hemidiaphragm is stable. IMPRESSION: Slight interval improved aeration of the lungs. No new abnormalities are demonstrated. POS: CET
[2019-03-21] MEDS ORDERED: Potassium Chloride 20 MEQ TAB PO SCH (09:00)
[2019-03-21] MEDS: Cefdinir 300 MG CAP PO SCH (09:46)
[2019-03-21] MEDS: Loperamide HCl 2 MG CAP PO PRN ×4 (09:48→21:12)
--- NOTE | 2019-03-21 09:56 | PRG ---
DATE OF SERVICE: 03/21/2019 SUBJECTIVE: She is awake, alert, in no distress. OBJECTIVE: VITAL SIGNS: Temperature 98.3, pulse 102, respirations 20, saturation 95%, blood pressure 163/88. HEENT: Unremarkable. NECK: No JVD. CHEST: Clear to auscultation. CARDIAC: S1 and S2, regular. ABDOMEN: Soft. EXTREMITIES: No edema. LABORATORY DATA: White blood cell count 18.9, hematocrit 30, platelet count 402. Sodium 141, potassium 3.1, chloride 107, CO2 of 23, BUN 11, creatinine 0.7, glucose 104. CPK is down at 2026. ASSESSMENT: 1. Status post acute respiratory failure, requiring mechanical ventilation. 2. Suspected benzodiazepine and opiate abuse. 3. Rhabdomyolysis. 4. Transaminitis. PLAN: She is probably stable for discharge. She can be switched over to oral antibiotics. I would finish up 10 full days of antibiotics. Her daily x-rays can be stopped. Pulmonary will sign off. Please recall if further assistance needed. Job ID: [id number]
--- NOTE | 2019-03-21 10:49 | PDOC.FM ---
- Subjective Subjective: MARY ANNE overnight. Pt continues to request benzo and opiates for anxiety and pain. Medically she has cont to improve. Discussed risk benefit of early discharge this afternoon if her CPK improves. Pt desires to go home. We will give tylenol for pain and cont abx per pulneftali recbritni. - Objective MAR Reviewed: Yes Vital Signs & Weight: Vital Signs (12 hours) Temp Pulse Resp BP BP Pulse Ox 03/21/19 08:39 98.3 F 102 H 20 163/88 H 95 03/21/19 08:08 172/95 H 03/21/19 04:00 97.7 F 108 H 20 170/94 H 170/94 H 94 L 03/21/19 01:10 106 H 181/95 H 03/21/19 00:30 98.3 F 100 20 181/93 H 93 L 03/21/19 00:00 98.0 F 103 H 18 172/89 H 172/89 H 93 L Weight Admit Weight 81.5 kg Weight 83.5 kg Most Recent Monitor Data Heart Rate from ECG 101 NIBP 168/101 NIBP BP-Mean 123 Respiration from ECG 29 SpO2 89 I&O: 03/20/19 03/21/19 03/22/19 06:59 06:59 06:59 Intake Total 4100 2425.5 Output Total 4728 375 Balance -628 2050.5 Result Diagrams: 03/21/19 05:56 03/21/19 07:35 Phys Exam - Physical Examination Constitutional: NAD HEENT: PERRLA, sclera anicteric Neck: no JVD Respiratory: no wheezing, no rales, no rhonchi, clear to auscultation bilateral Cardiovascular: RRR, no significant murmur, no rub Gastrointestinal: soft, non-tender, no distention, positive bowel sounds Musculoskeletal: no edema, pulses present Neurological: non-focal, moves all 4 limbs tremulous Skin: no rash Dx/Plan (1) Acute respiratory failure with hypoxia Code(s): J96.01 - ACUTE RESPIRATORY FAILURE WITH HYPOXIA Status: Acute (2) Aspiration pneumonia Code(s): J69.0 - PNEUMONITIS DUE TO INHALATION OF FOOD AND VOMIT Status: Acute (3) Elevated troponin Code(s): R74.8 - ABNORMAL LEVELS OF OTHER SERUM ENZYMES Status: Acute (4) Encephalopathy acute Code(s): G93.40 - ENCEPHALOPATHY, UNSPECIFIED Status: Acute (5) History of benzodiazepine use Code(s): Z87.898 - PERSONAL HISTORY OF OTHER SPECIFIED CONDITIONS Status: Acute (6) Opiate abuse, episodic Code(s): F11.10 - OPIOID ABUSE, UNCOMPLICATED Status: Acute (7) Opiate withdrawal Code(s): F11.23 - OPIOID DEPENDENCE WITH WITHDRAWAL Status: Acute (8) Respiratory acidosis Code(s): E87.2 - ACIDOSIS Status: Acute (9) Rhabdomyolysis Code(s): M62.82 - RHABDOMYOLYSIS Status: Acute (10) Transaminitis Code(s): R74.0 - NONSPEC ELEV OF LEVELS OF TRANSAMNS & LACTIC ACID DEHYDRGNSE Status: Acute - Plan Plan: 1. Acute hypoxic respiratory failure 2/2 aspiration pneumonia: -cont abx for total of 10 days - stable for dc as this has resolved and satting well on RA 2. Opiate and Benzodiazepine withdrawal- -she has been weaned of precedex - cont prn ativan for appropriate ase - she is stable for dc from this standpoint 3. HFrEF- -new -pt has elevatedd BP, will add low dose coreg 3. Erosive esophagiitis 2/2 aspiration- -EGD showed evidence of erosive esophagiitis but no acute bleeding -Pantoprazole 40mg PO daily -stable for DC 4. Sepsis-2/2 aspiration pneumonia. - cont abx for total of 10 days - cxr showed improvement - ok for DC to home 4. Aspiration pneumonia-see #3 -rx for 10 day total course - stable for DC 6. Rhabdomyolysis-resolving, dc'd fluids yesterday, cont PO hydration - CK >2000, will repeat this afternoon 7. LUCÍA: Prenal. Resolved. 8. Demand ischemia: resolved 9. Acute metabolic/toxic encephalophathy: -resolved - stable for DC 10. Transaminitis: -downtrending -hepatitis panel negative. -Ammonia negative. - Tylenol PRN for pain, max dose 2g 11. Hypokalemia- -resolved 12. Normocytic anemia- stable 13. Opiate and benzodiazepine use/abuse and withdrawal-see above; hx confirmed by daughter, see event note. PPx: protonix, lovenox Diet: advance diet as tolerated to regular/heart healthy CODE: FULL Dispo: Stable, she has clinically improved and is ready for DC pending a decreasing CPK. Will cont abx for 10 day total course. Addendum - Attending - Attending Attestation Date/Time: 03/21/19 2760 I personally evaluated the patient and discussed the management with Dr. Shelley. I agree with the History, Examination, Assessment and Plan documented above with any addition or exceptions noted below. Overall improving. She is adamant about leaving, which is reasonable and we have discussed risks of early discharge with CK > 1000 and signs for return, which she voices understanding. I have also had a long discussion with her concerning her inappropriate opiate use and BZD use and that her likely MDD/SHAWN should be more appropriately treated in the future.
[2019-03-21] MEDS ORDERED: Carvedilol 6.25 MG TAB PO SCH ×2 (11:15→17:00)
[2019-03-21 12:56] LABS: CKMB 3.7 ng/mL (0-6.6)
[2019-03-21] MEDS: Carvedilol 3.125 MG TAB PO SCH (16:23)
--- NOTE | 2019-03-21 17:24 | EKG ---
Test Reason : Blood Pressure : / mmHG Vent. Rate : 099 BPM Atrial Rate : 099 BPM P-R Int : 138 ms QRS Dur : 076 ms QT Int : 348 ms P-R-T Axes : 074 022 050 degrees QTc Int : 446 ms Normal sinus rhythm Normal ECG When compared with ECG of 15-MAR-2019 15:33, No significant change was found Confirmed by DR. Karson GUEVARA ([id number]) on 03/21/2019 5:23:57 PM Referred By: STEFANI Confirmed By:DR. Karson GUEVARA
[2019-03-21] MEDS ORDERED: traZODone HCl 150 MG TAB PO SCH (21:00)
[2019-03-21] MEDS: Lidocaine 4% Topical Sol 50 ML BOT TOP SCH (21:04)
[2019-03-22] MEDS: Diazepam 5 MG TAB PO PRN ×2 (01:58→06:21)
[2019-03-22] MEDS: Acetaminophen 325 MG TAB PO PRN ×2 (02:01→06:21)
[2019-03-22 06:47] LABS: #Basophils 0.1 thou/uL (0.0-0.2); #Eosinphils 0.9 thou/uL (0.0-0.7); #Lymphocytes 4.3 thou/uL (1.20-3.40); #Monocytes 0.9 thou/uL (0.11-0.59); #Neutrophils 11.8 thou/uL (1.40-6.50); %Basophils 0.5 % (0.0-1.0); %Eosinophils 4.7 % (0.0-10.0); %Monocytes 5.2 % (0.0-10.0); %Neutrophils 65.6 % (42.0-75.0); Hemoglobin 11.2 g/dL (12.0-16.0); Mean Corpuscular HGB CONC 32.7 g/dL (32.0-36.0); Mean Corpuscular Hemoglobin 30.3 pg (27.0-31.0); Mean Corpuscular Volume 92.8 fL (78.0-98.0); Mean Platelet Volume 8.8 fL (7.4-10.4); Platelet Count 357 thou/uL (130-400); RBC Distribution Width 13.3 % (11.5-14.5); Red Blood Cell (RBC) Count 3.71 mill/uL (4.20-5.40)
[2019-03-22 07:23] VITALS: TEMP 98.9
[2019-03-22 07:27] LABS: ALT (SGPT) 204 U/L (8-55); AST (SGOT) 61 U/L (5-34); Alkaline Phosphatase 82 U/L (40-150); Anion Gap 20 mmol/L (10-20); BUN (Urea Nitrogen) 16 mg/dL (9.8-20.1); Bilirubin, Total 0.6 mg/dL (0.2-1.2); CK (CPK) 879 U/L (29-168); Calc. Creatinine Clearance 96 mL/min (70-130); Calcium 8.8 mg/dL (7.8-10.44); Carbon Dioxide 14 mmol/L (22-29); Chloride 110 mmol/L (98-107); Estimated GFR-MDRD 68; Globulin 3.3 g/dL (2.4-3.5); Glucose 98 mg/dL (70-105); Protein, Total 6.3 g/dL (6.0-8.3); Sodium 140 mmol/L (136-145)
[2019-03-22] MEDS: Enoxaparin Sodium 40 MG/0.4 ML SYRINGE SC SCH (07:38)
[2019-03-22] MEDS: Carvedilol 3.125 MG TAB PO SCH (07:39)
[2019-03-22] MEDS: Cefdinir 300 MG CAP PO SCH (07:39)
[2019-03-22] MEDS: Multivitamin W/ Minerals 1 TAB PO SCH ×2 (07:40→07:46)
[2019-03-22] MEDS: Lisinopril 20 MG TAB PO SCH (07:40)
[2019-03-22] MEDS: Lorazepam 1 MG TAB PO SCH (07:40)
[2019-03-22] MEDS: Thiamine 100 MG TAB PO SCH (07:40)
[2019-03-22] MEDS: Folic Acid 1 MG TAB PO SCH (07:40)
[2019-03-22] MEDS: Magnesium Oxide 400 MG TAB PO SCH (07:41)
[2019-03-22] MEDS: Atorvastatin Calcium 40 MG TAB PO SCH (07:41)
[2019-03-22 07:46] VITALS: BP 147/88
[2019-03-22] MEDS: Lidocaine 4% Topical Sol 50 ML BOT TOP SCH (07:47)
--- NOTE | 2019-03-22 09:25 | PDOC.FM ---
- Subjective Subjective: MARY ANNE overnight. Pt reports she is ready to go. Does have some chest pain that is improved from yesterday. It is located intercostal and reproduced with palpation of ribs. She had normal EKG and downtrending troponin level yesterday at onset of pain. - Objective MAR Reviewed: Yes Vital Signs & Weight: Vital Signs (12 hours) Temp Pulse Resp BP BP Pulse Ox 03/22/19 08:00 100 03/22/19 07:40 147/88 H 03/22/19 07:22 98.9 F 93 16 139/90 93 L 03/22/19 04:00 99.1 F 103 H 22 H 134/85 94 L 03/22/19 00:00 98.4 F 107 H 22 H 136/85 90 L Weight Admit Weight 81.5 kg Weight 83.5 kg Most Recent Monitor Data Heart Rate from ECG 101 NIBP 168/101 NIBP BP-Mean 123 Respiration from ECG 29 SpO2 89 I&O: 03/21/19 03/22/19 03/23/19 06:59 06:59 06:59 Intake Total 2425.5 2040 240 Output Total 375 Balance 2050.5 2040 240 Result Diagrams: 03/22/19 06:10 03/22/19 06:10 Phys Exam - Physical Examination Constitutional: NAD HEENT: PERRLA, sclera anicteric Neck: no nodes, no JVD Respiratory: no wheezing, no rales, no rhonchi, clear to auscultation bilateral Cardiovascular: RRR, no significant murmur, no rub Gastrointestinal: soft, non-tender, positive bowel sounds Musculoskeletal: no edema, pulses present Neurological: non-focal, moves all 4 limbs Skin: no rash Dx/Plan (1) Acute respiratory failure with hypoxia Code(s): J96.01 - ACUTE RESPIRATORY FAILURE WITH HYPOXIA Status: Acute (2) Aspiration pneumonia Code(s): J69.0 - PNEUMONITIS DUE TO INHALATION OF FOOD AND VOMIT Status: Acute (3) Elevated troponin Code(s): R74.8 - ABNORMAL LEVELS OF OTHER SERUM ENZYMES Status: Acute (4) Encephalopathy acute Code(s): G93.40 - ENCEPHALOPATHY, UNSPECIFIED Status: Acute (5) History of benzodiazepine use Code(s): Z87.898 - PERSONAL HISTORY OF OTHER SPECIFIED CONDITIONS Status: Acute (6) Opiate abuse, episodic Code(s): F11.10 - OPIOID ABUSE, UNCOMPLICATED Status: Acute (7) Opiate withdrawal Code(s): F11.23 - OPIOID DEPENDENCE WITH WITHDRAWAL Status: Acute (8) Respiratory acidosis Code(s): E87.2 - ACIDOSIS Status: Acute (9) Rhabdomyolysis Code(s): M62.82 - RHABDOMYOLYSIS Status: Acute (10) Transaminitis Code(s): R74.0 - NONSPEC ELEV OF LEVELS OF TRANSAMNS & LACTIC ACID DEHYDRGNSE Status: Acute - Plan Plan: 1. Acute hypoxic respiratory failure 2/2 aspiration pneumonia: -cont abx for total of 10 days - stable for dc as this has resolved and satting well on RA 2. Opiate and Benzodiazepine withdrawal- -she has been weaned of precedex - cont prn ativan for appropriate ase - she is stable for dc from this standpoint - pt does admit to underlying anxiety and depression, she has asked for cont benzos on DC and discussed that this is inappropriate medication for disease process. She is ok to be DCd with sertraline and f/u with our clinic within 1 week 3. HFrEF- -new -pt has elevatedd BP, will add low dose coreg - bp stable - ok for DC 3. Erosive esophagiitis 2/2 aspiration- -EGD showed evidence of erosive esophagiitis but no acute bleeding -Pantoprazole 40mg PO daily -stable for DC 4. Sepsis-2/2 aspiration pneumonia. - cont abx for total of 10 days - cxr showed improvement - ok for DC to home 4. Aspiration pneumonia-see #3 -rx for 10 day total course - stable for DC 6. Rhabdomyolysis-resolving, dc'd fluids yesterday, cont PO hydration - CK <1000, ok for DC to home 7. LUCÍA: Prenal. Resolved. 8. Demand ischemia: resolved 9. Acute metabolic/toxic encephalophathy: -resolved - stable for DC 10. Transaminitis: -downtrending -hepatitis panel negative. -Ammonia negative. - Tylenol PRN for pain, max dose 2g 11. Hypokalemia- -resolved 12. Normocytic anemia- stable 13. Opiate and benzodiazepine use/abuse and withdrawal-see above; hx confirmed by daughter, see event note. - pt does have assocaited anxiety and depression, will rx sertraline on DC and f /u with our clinic OP PPx: protonix, lovenox Diet: advance diet as tolerated to regular/heart healthy CODE: FULL Dispo: Stable, rhabdo resolved. DC to home today with abx and SSRI. F/U with [facility] in 1 week Addendum - Attending - Attending Attestation Date/Time: 03/22/19 1200 I personally evaluated the patient and discussed the management with Dr. Shelley. I agree with the History, Examination, Assessment and Plan documented above with any addition or exceptions noted below. Denies CP this AM and overall markedly improved from admission. Will plan on d/ c. Return warnings discussed in detail.
[2019-03-22 09:31] LABS: Band 7 % (5-11); Eosinophils 1 % (0-10); Lymphocytes 29 % (21-51); MDiff Complete? YES; Metamyelocyte 2 % (0-0); Monocytes 2 % (0-10); Myelocyte 2 % (0-0); Neutrophil 57 % (42-75); Platelet Morphology Comment Appears Adequate; Polychromasia SLIGHT = 2-3 cells (100X) (0-2/hpf)
[2019-03-22 12:47] VITALS: BMI 31.6
--- NOTE | 2019-03-23 13:23 | DIS ---
DATE OF ADMISSION: 03/15/2019 DATE OF DISCHARGE: 03/22/2019 PROCEDURES: 1. Brain CT done on 03/15/2019 showed mild chronic ischemic changes. No acute intracranial abnormalities demonstrated. 2. Chest x-ray done on 03/15/2019 showed enlarged heart. Endotracheal and NG tubes are in satisfactory position. There is elevation of the right hemidiaphragm. Increased perihilar lung markings are present, asymmetrically involving the right hilar region. Possibly on the basis of pulmonary edema, a right parahilar infiltrate is not excluded. 3. Chest, abdomen, and pelvis CT done on 03/15/2019 showed no acute traumatic injury. Significant atelectasis of each lung, right greater than left. Predominantly dependent portion of the lungs. Mild diffuse periportal edema of the liver. 4. Abdominal ultrasound done on 03/15/2019 showed hepatomegaly, otherwise unremarkable. 5. Chest x-ray done on 03/16/2019 showed slightly more prominent left upper lobe infiltrative change. 6. Chest x-ray done on 03/17/2019 showed increasing lung infiltrates. 7. Chest x-ray done on 03/18/2019 showed improving bilateral pulmonary infiltrates. Most improvement is seen within the right lower lobe. 8. Chest x-ray done on 03/19/2019 showed no pleural effusion. Cardiomegaly stable. 9. Chest x-ray done on 03/20/2019 showed stable exam. 10. Chest x-ray done on 03/21/2019 showed slight interval improved aeration in the lungs. Otherwise, no new abnormalities demonstrated. 11. Echocardiogram done on 03/18/2019 showed overall left ventricular function moderately depressed. Ejection fraction was estimated at 30% to 35%. Left atrium is mildly dilated. Moderate mitral regurgitation is present. No evidence of mass or vegetation noted. Mild tricuspid regurgitation. Moderate pulmonic regurgitation present. CONSULTATIONS: 1. Dr. Prasad Shaw, Pulmonology. 2. Dr. German Andrews, Gastroenterology. DISCHARGE DIAGNOSES: 1. Acute encephalopathy. 2. Gastrointestinal bleed. 3. Transaminitis. 4. Acute kidney injury. 5. Non-ST elevated myocardial infarction. 6. Respiratory acidosis. 7. Metabolic acidemia. 8. Acute hypoxic respiratory failure. 9. Acute blood loss anemia. 10. Elevated troponin. 11. Sepsis. 12. Opioid abuse. 13. History of benzodiazepine use. 14. Opiate withdrawal. 15. Aspiration pneumonia. 16. Rhabdomyolysis. DISCHARGE MEDICATIONS: 1. Coreg 3.125 mg p.o. b.i.d. 2. Omnicef 600 mg p.o. daily. 3. Atarax 10 mg p.o. q.6 hours p.r.n. 4. Sertraline 25 mg p.o. daily. 5. Aspirin 81 mg daily. 6. Atorvastatin 40 mg p.o. daily. 7. Hydrochlorothiazide 25 mg daily. 8. Lisinopril 40 mg daily. 9. Trazodone 150 mg p.o. daily. Discontinued medications: 1. Benzodiazepines. 2. All opioid medications. HISTORY OF PRESENT ILLNESS: The patient is a 54-year-old female who presented to the ER by EMS after being found unresponsive by family members. When EMS had arrived, the patient was found have a GCS of 5, she was hypotensive on scene, and as such was intubated in the field. At that time, significant review of systems and past medical history were unable to be obtained, however, once we were able to contact the daughter of the patient, it is found that she does have a chronic history of substance abuse with opiates and benzos. When asked the patient reports that she received these previous medications from a physician in [place], but not giving any other details. Ultimately, it was discovered that the patient's acute encephalopathy as well as her other issues were ultimately caused by narcotic and benzodiazepine overdose. She was found to have diffuse esophagitis thought to be secondary to emetogenic injury and reflux which was treated accordingly. The patient was ultimately found to have aspiration pneumonia again secondary to her primary issue of narcotic and benzodiazepine overdose, which was treated for a total of 10 days and the patient was discharged on oral antibiotics to continue therapy. Following the days after extubation, the patient was placed on medications to prevent acute withdrawal of both benzodiazepines and opiate and tolerated the titration well. Ultimately, she was discharged to home without continuing any of these medicines and was encouraged to discontinue use of these medicines altogether. For complete details of the patient's hospitalization, please review individual reports as needed. INSTRUCTIONS: Followup: Follow up with [facility] in 7 to 10 days following discharge. Activity instructions : Ad elodia. Diet instructions: Heart healthy. Job ID: [id number]
== END 2019-03-22 12:50 | disposition left against medical advice (07) | DRG 853 ==
LOC: ERS 15:20 → CCU 19:17 → T4-A 03-20 12:45
PROVIDERS: ADMIT Emergency Medicine; ATTEND Emergency Medicine
PROC: 5A1945Z Respiratory Ventilation, 24-96 Consecutive Hours (ICD-10-PCS; principal; 2019-03-15)
PROC: 0B9M8ZX Drainage of Bilateral Lungs, Via Natural or Artificial Opening Endoscopic, Diagnostic (ICD-10-PCS; 2019-03-15)
PROC: 0DJ08ZZ Inspection of Upper Intestinal Tract, Via Natural or Artificial Opening Endoscopic (ICD-10-PCS; 2019-03-16)
DX: A41.9 Sepsis, unspecified organism (principal); J96.01 Acute respiratory failure with hypoxia; J69.0 Pneumonitis due to inhalation of food and vomit; J96.02 Acute respiratory failure with hypercapnia; G92 Toxic encephalopathy; N17.9 Acute kidney failure, unspecified; M62.82 Rhabdomyolysis; F11.23 Opioid dependence with withdrawal; E87.2 Acidosis; I24.8 Other forms of acute ischemic heart disease; K20.8 Other esophagitis; E87.6 Hypokalemia; I10 Essential (primary) hypertension; E78.5 Hyperlipidemia, unspecified; F17.210 Nicotine dependence, cigarettes, uncomplicated; F41.9 Anxiety disorder, unspecified; F32.9 Major depressive disorder, single episode, unspecified; D64.9 Anemia, unspecified; Z86.73 Personal history of transient ischemic attack (TIA), and cerebral infarction without residual deficits; Z88.5 Allergy status to narcotic agent; Z88.8 Allergy status to other drugs, medicaments and biological substances
CPT/HCPCS: 36415; 36556; 51702; 70450; 71045; 71260; 74177; 76705; 80053; 80061; 80202; 80306; 80307; 81003; 81015; 82140; 82271; 82550; 82553; 82570; 82805; 83605; 83735; 83880; 83935; 84145; 84300; 84484; 85025; 86706; 86780; 86803; 86850; 86900; 86901; 87070; 87077; 87186; 87205; 87340; 87389; 93005; 93010; 93306; 94002; 94003; 94640; 94660; 96361; 96365; 96366; 96368; 96375; C9113; J0360; J0696; J1650; J1940; J2060; J2270; J2310; J2543; J2704; J2920; J3010; J3370; J3411; J3475; J3480; J3490; J7050; J7070; J7620; Q9966